=== PATIENT | female | born 1975 | race Caucasian/White ===

== ENCOUNTER → 2018-02-12 12:08 | Outpatient (CLI) | payer SELFPAY ==
[2018-02-12 14:24] LABS: Free T4 (Free Thyroxine) 1.33 ng/dl (0.76-1.46); Thyroid Stimulating Hormone 3.33 uIU/ml (0.358-3.740)
[2018-02-15 05:17] LABS: Calcium, Ionized 5.2 mg/dL (4.5-5.6)
== END ==
PROVIDERS: PCP Emergency Medicine; Visit Provider Otolaryngology
DX: E03.9 Hypothyroidism, unspecified (principal)
CPT/HCPCS: 36415; 82330; 84439; 84443

== ENCOUNTER → 2018-08-12 15:29 | Outpatient (CLI) | payer BC, SELFPAY ==
[2018-08-12 16:48] LABS: Free T4 (Free Thyroxine) 1.34 ng/dl (0.76-1.46)
[2018-08-15 17:28] LABS: Calcium, Ionized 5.4 mg/dL (4.5-5.6)
== END ==
PROVIDERS: Visit Provider Otolaryngology
DX: E03.9 Hypothyroidism, unspecified (principal)
CPT/HCPCS: 36415; 82330; 84439; 84443

== ENCOUNTER → 2018-12-14 16:00 | Outpatient (CLI) | payer BC, SELFPAY ==
--- NOTE | 2018-12-14 16:03 | MM_ITS ---
MM Dig screening mamm BI w/CAD CAD Screening COMPARISON: Digital mammograms with CAD 05/19/2016 INDICATION: There is a history of breast cancer and the patient grandmother and paternal aunt. There has been a previous biopsy left breast for benign disease. TECHNIQUE: Standard CC and MLO images were obtained. R2 CAD reviewed. FINDINGS: Moderate diffuse fibroglandular densities are seen throughout both breasts. A biopsy clip is seen upper central portion left breast. There is no suspicious lesion and there are no suspicious microcalcifications. There is a benign-appearing calcification left breast. IMPRESSION: Moderately dense parenchymal pattern with no suspicious lesion seen BI-RADS Category: 2 Benign Finding(s) RECOMMENDED FOLLOW-UP: 1YR - 1 YEAR FOLLOW-UP (A letter has been sent to the patient regarding results of the study.)
== END ==
PROVIDERS: PCP Emergency Medicine; Visit Provider Nurse Practitioner Obstetrics & Gynecology
DX: Z12.31 Encounter for screening mammogram for malignant neoplasm of breast (principal)
CPT/HCPCS: 77067

== ENCOUNTER → 2018-12-31 10:37 | Outpatient (CLI) | payer BC, SELFPAY ==
--- NOTE | 2018-12-31 10:39 | US_ITS ---
US transvaginal HISTORY: Heavy painful periods ITS.REASON: US T/V-= Bulky Uterus ORDERING PHYSICIAN: Cristhian Hutson MD PATIENT AGE: 43 years Comparison: None FINDINGS: The uterus is 8 x 6 x 5 cm. Combined and medial thickness is 5 mm. The posterior aspect of the uterine fundus there is a heterogeneous area of echogenicity measuring 4 x 3 cm consistent with a fibroid. Small fibroid is also suspected in the anterior aspect of the body of the uterus at 1.3 x 0.9 cm. Right ovary is 4 x 2 cm and the left ovary is 2.5 x 0.4 cm. There is a 2 cm cyst projecting off the right ovary. No adnexal mass or cul-de-sac fluid. IMPRESSION: 1. Uterine fibroids. Slightly bulky uterus. 2. 2 cm right ovarian cyst
== END ==
PROVIDERS: PCP Emergency Medicine; Visit Provider Nurse Practitioner Obstetrics & Gynecology
DX: N85.2 Hypertrophy of uterus (principal)
CPT/HCPCS: 76830

== ENCOUNTER → 2019-02-23 08:32 | Outpatient (CLI) | payer BC, SELFPAY ==
[2019-02-23 08:52] LABS: Basophils % 0.2 % (0.1-2.0); Eosinophils # 0.2 K/mm3 (0.0-0.4); Eosinophils % 1.7 % (0.1-12.0); Hematocrit 39.4 % (37.0-47.0); Hemoglobin 12.3 g/dL (12.2-16.2); Lymphocytes # 2.3 K/mm3 (0.7-4.5); Lymphocytes % 27.1 % (10-50); Mean Corpuscular HGB Conc 31.3 g/dL (31.8-35.4); Mean Corpuscular Hemoglobin 28.8 pg (27.0-31.2); Mean Corpuscular Volume 92.3 fl (81-99); Mean Platelet Volume 8.2 fl (7.4-10.4); Monocytes # 0.6 K/mm3 (0.1-1.0); Monocytes % 6.6 % (1.7-9.3); Neutrophils # 5.5 K/mm3 (1.8-7.8); Neutrophils % 64.3 % (37.0-80.0); Platelet Count 316 K/mm3 (142-424); Red Blood Count 4.27 M/mm3 (4.20-5.40); Red Cell Distribution Width 13.2 % (11.5-17.5); White Blood Count 8.6 K/mm3 (4.8-10.8)
[2019-02-23 09:56] LABS: Alanine Aminotransferase 45 U/L (12-78); Albumin Level 3.7 gm/dL (3.4-5.0); Albumin/Globulin Ratio 1.2 (1.1-1.8); Alkaline Phosphatase 76 U/L (46-116); Anion Gap 13.2 mEq/L (5-15); Aspartate Amino Transferase 26 U/L (15-37); Bilirubin,Total 0.5 mg/dL (0.2-1.0); Blood Urea Nitrogen 9 mg/dL (7-18); Calcium 8.9 mg/dL (8.5-10.1); Carbon Dioxide 26 mmol/L (21.0-32.0); Chloride 106 mmol/L (98-107); Chol/HDL Ratio 4.2 (1-3.5); Cholesterol 178 mg/dL (140-200); Creatinine,Serum 0.63 mg/dL (0.55-1.02); Estimated Glomerular Filt Rate 104 ml/min (>60); GFR (African American) 126 ML/MIN (>60); Glucose 93 mg/dL (74-106); HDL Cholesterol 42 mg/dL (29-89); LDL Cholesterol 111 mg/dL (0-130); Potassium 4.2 mmoL/L (3.5-5.1); Sodium 141 mmol/L (136-145); Total Protein,Serum 6.7 gm/dL (6.4-8.2); Triglycerides 127 mg/dL (30-200); VLDL Cholesterol 25 mg/dL (0-40)
== END ==
PROVIDERS: Visit Provider Nurse Practitioner Obstetrics & Gynecology
DX: Z00.00 Encounter for general adult medical examination without abnormal findings (principal)
CPT/HCPCS: 36415; 80053; 80061; 85025

== ENCOUNTER → 2019-03-22 16:03 | Outpatient (CLI) | payer BC, SELFPAY ==
--- NOTE | 2019-03-22 16:10 | XR_ITS ---
PROCEDURE: XR CHEST 2V CLINICAL HISTORY: cough Cough and congestion COMPARISON: CXR1 CHEST-PORTABLE from 07/07/2012 CXR CHEST(2 VIEWS-NOT PORTABLE) from 10/28/2012 CXR2V XR chest 2V from 04/12/2018 FINDINGS: The cardiomediastinal silhouette and pulmonary vascularity are within normal limits. The lungs are clear without infiltrates, suspicious nodules, or pleural effusions. There is a 4 cm pneumatocele involving the right middle lobe. No other significant anomalies are evident. No acute bony findings. IMPRESSION: 4 cm pneumatocele right middle lobe otherwise negative. No change with no acute finding Dictated by: Jay Quigley MD 03/22/2019 16:28 Electronically signed by Jay Quigley MD in [place] 03/22/2019 16:28
== END ==
PROVIDERS: PCP Nurse Practitioner Family; Visit Provider Nurse Practitioner Family
DX: R05 Cough (principal); R09.89 Other specified symptoms and signs involving the circulatory and respiratory systems; L02.91 Cutaneous abscess, unspecified
CPT/HCPCS: 71046; 87070; 87077; 87186; 87205

== ENCOUNTER → 2019-04-11 12:48 | Outpatient (CLI) | payer BC, SELFPAY ==
[2019-04-11 13:29] LABS: Thyroid Stimulating Hormone 3.93 uIU/ml (0.358-3.740)
== END ==
PROVIDERS: Visit Provider Otolaryngology
DX: E03.9 Hypothyroidism, unspecified (principal)
CPT/HCPCS: 36415; 84439; 84443

== ENCOUNTER → 2019-09-14 15:13 | Outpatient (CLI) | payer BC, SELFPAY ==
--- NOTE | 2019-09-14 15:13 | US_ITS ---
PROCEDURE: US TRANSVAGINAL CLINICAL INDICATION: dub Dysfunctional bleeding, prolonged heavy periods COMPARISON: TRANVAG US transvaginal from 12/31/2018 FINDINGS: UTERUS: 8cm x 4cmx 5cm with a combined endometrial thickness of 4.6mm There is an oval area decreased echogenicity in the anterior aspect of the body of the uterus at 1.3 x 0.9 x 1.6 cm. There is an additional hyperechoic area in the posterior aspect of the uterus at 3.8 x 3 cm. These are consistent with fibroids and are not significantly changed. LEFT OVARY: [id number] with a volume of 6.2ml. RIGHT OVARY: [id number] with a volume of 4.2ml. No cul-de-sac fluid evident. IMPRESSION: Overall no change in the uterine fibroids. Dictated by: Jay Quigley MD 09/14/2019 16:31 Electronically signed by Jay Quigley MD in [place] 09/14/2019 16:31
== END ==
PROVIDERS: PCP Nurse Practitioner Family; Visit Provider Nurse Practitioner Obstetrics & Gynecology
DX: N93.8 Other specified abnormal uterine and vaginal bleeding (principal)
CPT/HCPCS: 76830

== ENCOUNTER → 2019-12-09 13:08 | Outpatient (CLI) | payer BC, SELFPAY ==
[2019-12-10 14:52] LABS: Covid-19 Nasal PCR Sendout Lex Not Detected
== END ==
PROVIDERS: PCP Emergency Medicine; Visit Provider Emergency Medicine
DX: Z03.818 Encounter for observation for suspected exposure to other biological agents ruled out (principal)
CPT/HCPCS: U0004

== ENCOUNTER → 2020-03-20 15:54 | Outpatient (CLI) | payer BC, SELFPAY ==
[2020-03-20 17:20] LABS: Basophils % 0.2 % (0.1-2.0); Eosinophils # 0.1 K/mm3 (0.0-0.4); Eosinophils % 1.1 % (0.1-12.0); Hematocrit 44.4 % (37.0-47.0); Hemoglobin 14.5 g/dL (12.2-16.2); Lymphocytes % 20.9 % (10-50); Mean Corpuscular HGB Conc 32.7 g/dL (31.8-35.4); Mean Corpuscular Hemoglobin 29.9 pg (27.0-31.2); Mean Corpuscular Volume 91.3 fl (81-99); Mean Platelet Volume 8.8 fl (7.4-10.4); Monocytes # 0.5 K/mm3 (0.1-1.0); Monocytes % 5.7 % (1.7-9.3); Neutrophils # 6.8 K/mm3 (1.8-7.8); Neutrophils % 72.1 % (37.0-80.0); Platelet Count 303 K/mm3 (142-424); Red Blood Count 4.87 M/mm3 (4.20-5.40); Red Cell Distribution Width 12.9 % (11.5-17.5); White Blood Count 9.4 K/mm3 (4.8-10.8)
[2020-03-20 17:27] LABS: Alanine Aminotransferase 37 U/L (12-78); Albumin/Globulin Ratio 1.4 (1.1-1.8); Alkaline Phosphatase 101 U/L (38-126); Anion Gap 12.5 mEq/L (5-15); Aspartate Amino Transferase 33 U/L (14-36); Bilirubin,Total 0.6 mg/dl (0.2-1.3); Blood Urea Nitrogen 9 mg/dl (7-17); Calcium 9.2 mg/dl (8.4-10.2); Carbon Dioxide 25 mmol/L (22.0-30.0); Chloride 105 mmol/L (98-107); Chol/HDL Ratio 4.8 (1-3.5); Cholesterol 181 mg/dl (140-200); Estimated Glomerular Filt Rate 135 ml/min (>60); GFR (African American) 164 ML/MIN (>60); Globulin 2.9 g/dL (1.3-3.2); Glucose 99 mg/dl (74-100); HDL Cholesterol 38 mg/dl (40-60); Potassium 4.5 mmoL/L (3.5-5.1); Sodium 138 mmol/L (136-145); Total Protein,Serum 6.9 g/dl (6.3-8.2); Triglycerides 182 mg/dl (30-150); VLDL Cholesterol 36 mg/dL (0-40)
[2020-03-20 17:38] LABS: Direct LDL Cholesterol 122.34 mg/dL (100-129)
[2020-03-20 17:45] LABS: 25-OH Vitamin D, Total 38.3 ng/mL (30-100)
[2020-03-20 17:46] LABS: T4 (Thyroxine) 15.9 ug/dl (5.53-11.0)
[2020-03-20 18:00] LABS: Thyroid Stimulating Hormone 0.82 uIU/mL (0.465-4.68)
== END ==
PROVIDERS: Visit Provider Nurse Practitioner Family
DX: Z00.00 Encounter for general adult medical examination without abnormal findings (principal); E03.9 Hypothyroidism, unspecified; Z79.899 Other long term (current) drug therapy
CPT/HCPCS: 80053; 80061; 82306; 84436; 84443; 85025

== ENCOUNTER 2020-05-17 12:57 | Emergency (ER) | payer BC, SELFPAY ==
[2020-05-17 13:55] VITALS: BP 128/74; PULSE 55; RESP 20; TEMP 36.1; O2SAT 98; BMI 34.9
--- NOTE | 2020-05-17 14:23 | HMH.EDUTC ---
[facility] [place] Clinical Impression: Acute bronchitis Qualifiers: Bronchitis organism: unspecified organism Qualified Code(s): J20.9 - Acute bronchitis, unspecified Sinusitis Qualifiers: Sinusitis location: unspecified location Chronicity: unspecified Qualified Code(s): J32.9 - Chronic sinusitis, unspecified Disposition: Home, Self-Care Condition on Discharge: Good Instructions: Sinusitis, Sinus Headache, DI for Sinusitis, DI for COVID-19 (Suspected or Confirmed ), COVID-19 Viral Test, Preventing the Spread of Coronavirus Discharge Instructions, Acute Bronchitis Additional Instructions: ? Start antibiotic today. Be sure to complete entire prescription even if feeling better ? Monitor temp. Tylenol every 4 hours as needed and / or ibuprofen every 6 hours as needed ( As long as your primary care physician has told you that it ok to take both. For fever/aches/pains ER if no less than 101 despite Tylenol or Motrin ? Humidifier/vaporizer or hot steamy shower *Tessalon Perles will not cause drowsiness but use at bedtime to help stop cough so that you may get some rest. *Start steroid today. Helps with inflammation therefore, cough and wheezing. Follow directions on the package. Reviewed side effects. Patient reports taking them before. Follow up IMMEDIATELY for new or worsening of symptoms OR no noticeable improvement over the next 48-72 hours. 911 immediately for any life threatening symptoms such as chest pain or difficulty breathing Prescriptions: methylPREDNISolone [Medrol 4mg tab] 4 mg PO DIRECTED #21 tab Transmission Status: Pending to [facility] Benzonatate [Tessalon Perle 100mg Cap*] 100 mg PO TID PRN #15 cap PRN Reason: Cough Transmission Status: Pending to [facility] Azithromycin [Z-Yoan 250mg Tab] 250 mg PO DIRECTED #6 tab Transmission Status: Pending to [facility] Referrals: Terence Collins MD [Primary Care Provider] - Forms: Work/School Release Time of Disposition: 14:38 Medical Decision Making - Wilian Inquiry Pt receiving controlled substance: No Wilian was queried for this patient: No Vital Signs: 05/17/20 13:55 Temperature 97.0 F L Temperature Source Oral Pulse Rate [Left Brachial] 55 L Respiratory Rate 20 Blood Pressure [Left Arm] 128/74 Blood Pressure Mean [Left Arm] 92 Blood Pressure Source [Left Arm] Automatic Cuff Blood Pressure Position [Left Arm] Sitting 02 Sat by Pulse Oximetry 98 Oxygen Delivery Method Room Air - Lab Data Lab results reviewed: Yes: I reviewed the patient's lab results. Orders (Tests/Meds): ORDERS Category Date Time Status Covid-19 Nasal PCR Sendout P&C Stat Lab 05/17/20 14:13 Ordered Medical Decision Narrative: Patient states that she has taken azithromycin before without complications or reactions [facility] [place] - General Stated complaint: sore throat,ear pain Time Seen by Provider: 05/17/20 14:23 Mode of Arrival: Ambulatory Source of Information: Patient Limitations: No Limitations Description of Symptoms (Recalled from Triage Doc. 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
[2020-05-17 14:27] VITALS: BP 128/74; PULSE 55; RESP 20; TEMP 36.1; O2SAT 98
[2020-05-17 19:01] LABS: UTC Influenza A Antigen Negative (Negative); UTC Strep Screen (Rapid) Negative (Negative)
[2020-05-17 19:02] LABS: UTC Influenza B Antigen Negative (Negative)
[2020-05-18 10:57] LABS: Covid-19 Nasal PCR Sendout P&C NEGATIVE
== END 2020-05-17 14:30 | disposition home or self-care (01) ==
PROVIDERS: Emergency Provider Nurse Practitioner; PCP Emergency Medicine
DX: Z20.828 Contact with and (suspected) exposure to other viral communicable diseases (principal); J20.9 Acute bronchitis, unspecified; J32.9 Chronic sinusitis, unspecified; F17.210 Nicotine dependence, cigarettes, uncomplicated
CPT/HCPCS: 87804; 87880; 99202; U0004

== ENCOUNTER 2020-07-30 08:58 | Emergency (ER) | payer BC, SELFPAY ==
[2020-07-30 09:10] VITALS: BP 141/81; PULSE 68; RESP 19; TEMP 36.9; O2SAT 98; BMI 38.4
[2020-07-30 09:26] LABS: Apearance,Urine Clear (Clear); Bilirubin,Urine Negative (Negative); Blood, Urine 2+ (Negative); Color,Urine Yellow (Yellow); Glucose,Urine (UA) Negative (Negative); Ketones,Urine Negative (Negative); Protein,Urine Negative (Negative); UTC Leukocyte Esterase,Urine Negative (Negative); UTC Nitrate,Urine Negative (Negative); Urobilinogen,Urine 0.2 EU/dl (0.2)
--- NOTE | 2020-07-30 09:42 | HMH.EDUTC ---
[facility] Disposition Clinical Impression: Back pain Qualifiers: Back pain location: low back pain Chronicity: unspecified Back pain laterality: bilateral Sciatica presence: without sciatica Qualified Code(s): M54.5 - Low back pain Disposition: Home, Self-Care Condition on Discharge: Good Instructions: Low Back Pain, DI for Low Back Pain Additional Instructions: Make sure to follow up if no improvement or any worsening of symptoms Sometimes with Dependent edema can happen if you are on your feet too much and you can prop up your legs above the level of the heart to help Return if needed Straight to ER if any life threatening symptoms Make sure to take medication as prescribed by your Family Doctor to see if it helps with your pain and spasms Referrals: Terence Colilns MD [Primary Care Provider] - As needed Forms: Work/School Release Time of Disposition: 09:52 Medical Decision Making - Wilian Inquiry Pt receiving controlled substance: No Wilian was queried for this patient: No Vital Signs: 07/30/20 09:10 07/30/20 10:02 Temperature 98.4 F 98.4 F Temperature Source Oral Pulse Rate 68 Pulse Rate [Right Brachial] 68 Respiratory Rate 19 19 Blood Pressure 141/81 H Blood Pressure [Right Arm] 141/81 H Blood Pressure Mean [Right Arm] 101 Blood Pressure Source [Right Arm] Automatic Cuff Blood Pressure Position [Right Arm] Sitting 02 Sat by Pulse Oximetry 98 Oxygen Delivery Method Room Air - Lab Data Lab results reviewed: Yes: I reviewed the patient's lab results. Lab Results 07/30/20 09:16: Urine Color Yellow, Urine Appearance Clear, Urine pH 5.0, Ur Specific [place] 1.030, Urine Protein Negative, Urine Glucose (UA) Negative, Urine Ketones Negative, Urine Blood 2+, Urine Nitrate Negative, Urine Bilirubin Negative, Urine Urobilinogen 0.2, Ur Leukocyte Esterase Negative Medical Decision Narrative: Discussed with patient that if she had pulled a muscle and she was having spasms causing her pain she was prescribed Muscle relaxers by her PCP that would help with that pain in her back. She states that she is currently spotting getting ready to start her monthly period which would explain blood in urine. Discussed with patient that her urine in the UTC did not show any signs of infection Discussed transfer to the ED due to she was concerned with some mild swelling in her legs and history of kidney stones and current complaints would be better to be evaluated and treated in the ED and she declined transfer states that pain is not like what she had before with kidney stone this pain is across her lower back area and that she will follow up with her PCP or return if any worsening of symptoms and get the medication filled that was prescribed by her PCP to see if that helps with her pain/spasms [facility] HPI - General Stated complaint: right side pain Time Seen by Provider: 07/30/20 09:42 Mode of Arrival: Ambulatory Source of Information: Patient Limitations: No Limitations Description of Symptoms (Recalled from Triage Doc. by RN): PATIENT C/O FLANK PAIN, SWELLING, AND SOA X 1 WEEK HEENT Symptoms (Recalled from RN notes): No Resp Symptoms (Recalled from RN notes): Yes Skin Symptoms (Recalled from RN notes): No MS Symptoms (Recalled from RN notes): No Functional Status (Recalled from RN notes): WNL - History of Present Illness Provider Complaint: Patient state that she was seen at her PCP last week for lower back pain and it hasnt got any better but she hasnt taken any of the medication that he prescribed for her. States that she has continued to have lower back pain and was worried and wanted to get her urine checked to see if she may have an infection States that she has history of UTI States that when her back spasms and has pain it feels like it takes her breath So she come in today to get her urine checked to see if she had a UTI - Related Data Home Medications Medication Instructions Recorded Confirmed buprenorp
[2020-07-30 10:02] VITALS: BP 141/81; PULSE 68; RESP 19; TEMP 36.9; O2SAT 98
== END 2020-07-30 10:05 | disposition home or self-care (01) ==
PROVIDERS: Emergency Provider Nurse Practitioner; PCP Emergency Medicine
DX: M62.830 Muscle spasm of back (principal); M54.5 Low back pain; E03.9 Hypothyroidism, unspecified; F17.210 Nicotine dependence, cigarettes, uncomplicated; Z79.899 Other long term (current) drug therapy
CPT/HCPCS: 81003; 99202; G0463

== ENCOUNTER → 2020-08-10 09:01 | Outpatient (CLI) | payer BC, SELFPAY ==
--- NOTE | 2020-08-10 09:08 | MM_ITS ---
PROCEDURE: MM DIG SCREENING MAMM BI W/CAD Digital Breast Tomosynthesis Included CLINICAL INDICATION: screening breast cancer There is no personal or family history of breast cancer. There has been previous biopsy left breast for benign disease. COMPARISON: MG DMDXUL DIG MAMM-DX UNI-LT from 11/14/2015 MG DMDB DIG MAMM-DX ARANZA from 05/19/2016 MG DIG MAMM-SCREEN ARANZA from 12/14/2018 TECHNIQUE: Standard CC and MLO images and 3D Tomosynthesis was obtained. R2 CAD reviewed. FINDINGS: Moderate scattered fibroglandular densities are seen throughout both breast and the findings are bilateral and symmetrical. There is a biopsy clip upper central portion left breast. There is a stable tiny benign-appearing nodular density upper right breast likely a small intramammary node. There is no suspicious lesion and no suspicious microcalcifications. IMPRESSION: Moderate breast density with no suspicious lesions seen BI-RAD Category: 2 Benign Finding(s) FOLLOW-UP: 1YR 1 Year Follow-up (A letter has been sent to the patient regarding results of the study.) Dictated by: Dr. Jesse Peterson MD 08/18/2020 10:06 Dr. Jesse Peterson MD in [place] 08/18/2020 10:06
== END ==
PROVIDERS: PCP Emergency Medicine; Visit Provider Nurse Practitioner Family
DX: Z12.31 Encounter for screening mammogram for malignant neoplasm of breast (principal)
CPT/HCPCS: 77063; 77067

== ENCOUNTER → 2020-12-06 11:52 | Outpatient (CLI) | payer BC, SELFPAY ==
[2020-12-06 13:23] LABS: Free T4 (Free Thyroxine) 1.36 ng/dl (0.78-2.19)
[2020-12-06 13:41] LABS: Thyroid Stimulating Hormone 1.08 uIU/mL (0.465-4.68)
== END ==
PROVIDERS: Visit Provider Otolaryngology
DX: E03.9 Hypothyroidism, unspecified (principal)
CPT/HCPCS: 36415; 84439; 84443

== ENCOUNTER → 2020-12-25 16:53 | Outpatient (CLI) | payer BC, SELFPAY ==
--- NOTE | 2020-12-25 | XR_ITS ---
PROCEDURE: XR CHEST PORTABLE CLINICAL HISTORY: Cough and shortness of COMPARISON: CR CXR2V XR chest 2V from 04/12/2018 CR XR CHEST 2V from 03/22/2019 CR XR CHEST 2V from 08/12/2019 FINDINGS: The cardiomediastinal silhouette and pulmonary vascularity are within normal limits. The lungs are clear without infiltrates, suspicious nodules, or pleural effusions. No acute bony abnormalities. IMPRESSION: No acute findings. Dictated by: Jay Quigley MD 12/25/2020 18:01 Jay Quigley MD in [place] 12/25/2020 18:01
[2020-12-25 17:26] LABS: Adenovirus,PCR Not Detected (NotDetected); Bordetella Pertussis Not Detected (NotDetected); Chlamydophila Pneumoniae, PCR Not Detected (NotDetected); Coronavirus 19, PCR Not Detected (NotDetected); Coronavirus 229E Not Detected (NotDetected); Coronavirus NL63 Not Detected (NotDetected); Coronavirus OC43 Not Detected (NotDetected); Coronovirus HKU1,PCR Not Detected (NotDetected); Human Metapneumovirus Not Detected (NotDetected); Influenza A, PCR Not Detected (NotDetected); Influenza AH1, 2009 Not Detected (NotDetected); Influenza AH1, PCR Not Detected (NotDetected); Influenza AH3,PCR Not Detected (NotDetected); Influenza B, PCR Not Detected (NotDetected); Mycoplasma Pneumoniae, PCR Not Detected (NotDetected); Parainfluenza 1, PCR Not Detected (NotDetected); Parainfluenza 2, PCR Not Detected (NotDetected); Parainfluenza 3, PCR Not Detected (NotDetected); Parainfluenza 4, PCR Not Detected (NotDetected); Rhinovirus/Enterovirus Not Detected (NotDetected)
[2020-12-25 19:03] LABS: Respiratory Syncytial Virus Detected (NotDetected)
== END ==
PROVIDERS: PCP Nurse Practitioner Family; Visit Provider Nurse Practitioner Family
DX: Z20.822 Contact with and (suspected) exposure to COVID-19 (principal); R05 Cough; B97.4 Respiratory syncytial virus as the cause of diseases classified elsewhere
CPT/HCPCS: 71045; 87070; 87205; 87581; 87633; 87798

== ENCOUNTER → 2021-04-29 13:14 | Outpatient (CLI) | payer BC, SELFPAY ==
--- NOTE | 2021-05-01 11:20 | PC.NURSE ---
notified pt of positive COVID swab results at this time
== END ==
PROVIDERS: PCP Emergency Medicine; Visit Provider Nurse Practitioner
DX: U07.1 COVID-19 (principal)
CPT/HCPCS: C9803; U0003; U0005

== ENCOUNTER → 2021-08-16 14:58 | Outpatient (CLI) | payer BC, SELFPAY | PROVIDERS: Visit Provider Emergency Medicine | DX: Z20.822 Contact with and (suspected) exposure to COVID-19 (principal) | CPT/HCPCS: C9803; U0003; U0005 ==

== ENCOUNTER → 2022-01-31 14:50 | Outpatient (CLI) | payer BC, SELFPAY | PROVIDERS: PCP Nurse Practitioner Family; Visit Provider Nurse Practitioner Family | DX: N39.0 Urinary tract infection, site not specified (principal); B96.29 Other Escherichia coli [E. coli] as the cause of diseases classified elsewhere | CPT/HCPCS: 87086; 87088; 87186 ==

== ENCOUNTER → 2022-02-25 15:57 | Outpatient (CLI) | payer BC, SELFPAY | PROVIDERS: PCP Physician Assistant; Visit Provider Physician Assistant | DX: R39.9 Unspecified symptoms and signs involving the genitourinary system (principal) | CPT/HCPCS: 87086 ==

== ENCOUNTER → 2022-03-06 15:00 | Outpatient (CLI) | payer BC, SELFPAY ==
[2022-03-06 18:30] LABS: Chloride 103 mmol/L (98-107); Sodium 139 mmol/L (136-145)
[2022-03-06 18:31] LABS: Potassium 4.4 mmoL/L (3.5-5.1)
[2022-03-06 18:33] LABS: Alanine Aminotransferase 30 U/L (12-78); Albumin Level 4.2 g/dl (3.5-5.0); Albumin/Globulin Ratio 1.5 (1.1-1.8); Alkaline Phosphatase 120 U/L (38-126); Anion Gap 13.4 mEq/L (5-15); Aspartate Amino Transferase 33 U/L (14-36); Bilirubin,Total 0.2 mg/dl (0.2-1.3); Blood Urea Nitrogen 11 mg/dl (7-17); Calcium 8.7 mg/dl (8.4-10.2); Carbon Dioxide 27 mmol/L (22.0-30.0); Chol/HDL Ratio 5.4 (1-3.5); Cholesterol 223 mg/dl (140-200); Estimated Glomerular Filt Rate 109 ml/min (>60); GFR (African American) 131 ML/MIN (>60); Globulin 2.8 g/dL (1.3-3.2); Glucose 84 mg/dl (74-100); HDL Cholesterol 41 mg/dl (40-60); Triglycerides 220 mg/dl (30-150); VLDL Cholesterol 44 mg/dL (0-40)
[2022-03-06 18:35] LABS: Basophils # 0.1 K/mm3 (0-0.2); Basophils % 0.8 % (0.1-2.0); Eosinophils # 0.1 K/mm3 (0.0-0.4); Eosinophils % 1.4 % (0.1-12.0); Hemoglobin 14.1 g/dL (12.2-16.2); Lymphocytes # 2.5 K/mm3 (0.7-4.5); Lymphocytes % 26.9 % (10-50); Mean Corpuscular HGB Conc 32.8 g/dL (31.8-35.4); Mean Corpuscular Hemoglobin 29.6 pg (27.0-31.2); Mean Corpuscular Volume 90.3 fl (81-99); Mean Platelet Volume 8.9 fl (7.4-10.4); Monocytes # 0.5 K/mm3 (0.1-1.0); Monocytes % 5.1 % (1.7-9.3); Neutrophils # 6.2 K/mm3 (1.8-7.8); Neutrophils % 65.8 % (37.0-80.0); Platelet Count 353 K/mm3 (142-424); Red Blood Count 4.76 M/mm3 (4.20-5.40); Red Cell Distribution Width 13.2 % (11.5-17.5); White Blood Count 9.4 K/mm3 (4.8-10.8)
[2022-03-06 18:44] LABS: Direct LDL Cholesterol 127.28 mg/dL (100-129)
[2022-03-06 19:05] LABS: 25-OH Vitamin D, Total 23.3 ng/mL (30-100); Thyroid Stimulating Hormone 1.59 uIU/mL (0.465-4.68)
== END ==
PROVIDERS: PCP Student in an Organized Health Care Education/Training Program; Visit Provider Student in an Organized Health Care Education/Training Program
DX: N30.00 Acute cystitis without hematuria (principal); R51.9 Headache, unspecified; R53.83 Other fatigue; E55.9 Vitamin D deficiency, unspecified
CPT/HCPCS: 80053; 80061; 82306; 84443; 85025; 87086

== ENCOUNTER → 2022-03-31 11:07 | Outpatient (CLI) | payer BC, SELFPAY | PROVIDERS: PCP Emergency Medicine; Visit Provider Emergency Medicine | DX: Z20.822 Contact with and (suspected) exposure to COVID-19 (principal) | CPT/HCPCS: C9803; U0003; U0005 ==

== ENCOUNTER 2022-09-10 03:05 | Observation (INO) | payer OTHER, SELFPAY ==
[2022-09-10] VITALS (22 sets, daily range): BP systolic 105–152; BP diastolic 58–87; PULSE 59–98; RESP 15–18; TEMP 36.6–43; O2SAT 98–100; BMI 28.3; BMI 29.2
--- NOTE | 2022-09-10 03:37 | CT_ITS ---
PROCEDURE INFORMATION: Exam: CT Abdomen And Pelvis Without Contrast Exam date and time: 09/10/2022 3:37 AM Age: 47 years old Clinical indication: Abdominal pain; Prior surgery; Surgery type: Tubal, hysterectomy; Additional info: Abd pain, cramping TECHNIQUE: Imaging protocol: Computed tomography of the abdomen and pelvis without contrast. Radiation optimization: All CT scans at this facility use at least one of these dose optimization techniques: automated exposure control; mA and/or kV adjustment per patient size (includes targeted exams where dose is matched to clinical indication); or iterative reconstruction. REPORTING DATA: Count of CT and Cardiac NM exams in prior 12 months: This patient has received 0 known CTs and 0 known cardiac nuclear medicine studies in the 12 months prior to the current study. COMPARISON: CT ABDOMEN PELVIS WO CON 07/05/2019 10:14 AM FINDINGS: Lungs: A pneumatocele again noted in the right middle lobe, incompletely imaged. Lung bases are otherwise clear. Liver: Normal liver. Gallbladder and bile ducts: Normal gallbladder. No calcified stones. No ductal dilation. Pancreas: Normal pancreas. No ductal dilation. Spleen: Tiny calcified granulomas in the spleen. Otherwise unremarkable. Adrenal glands: Adrenal glands are normal. Kidneys and ureters: A few tiny, 1-2 mm bilateral nonobstructive renal calculi. No hydronephrosis or obstructive calculus. Stomach and bowel: Large and small bowel loops appear unremarkable. No obvious gastric abnormality. Appendix: An 8 mm diameter appendix with mild periappendiceal inflammatory changes, consistent with acute appendicitis. Intraperitoneal space: Trace free fluid in the pelvis. No free air. No abscess. Vasculature: Unremarkable. No abdominal aortic aneurysm. Lymph nodes: No adenopathy. Urinary bladder: Urinary bladder is partially decompressed but otherwise unremarkable. Reproductive: Status post interval hysterectomy. Small simple cyst or dominant follicle in the right ovary. Unremarkable left ovary. Bones/joints: No acute osseous abnormality. Soft tissues: Unremarkable. IMPRESSION: 1. An 8 mm diameter appendix with mild periappendiceal inflammatory changes, consistent with acute appendicitis. Appendix previously only measured 3 mm. 2. Trace free fluid in the pelvis. 3. A few tiny, 1-2 mm bilateral nonobstructive renal calculi. 4. THIS REPORT CONTAINS FINDINGS THAT MAY BE CRITICAL TO PATIENT CARE. The findings were verbally communicated via telephone conference with SAAD Yoder at 4:31 AM EDT on 09/10/2022. The findings were acknowledged and understood.
[2022-09-10 03:38] LABS: Basophils % 0.2 % (0.1-2.0); Eosinophils # 0.1 K/mm3 (0.0-0.4); Eosinophils % 0.8 % (0.1-12.0); Hematocrit 49.3 % (37.0-47.0); Hemoglobin 16.8 g/dL (12.2-16.2); Lymphocytes # 2.3 K/mm3 (0.7-4.5); Lymphocytes % 18.9 % (10-50); Mean Corpuscular Hemoglobin 29.8 pg (27.0-31.2); Mean Corpuscular Volume 87.5 fl (81-99); Mean Platelet Volume 8.5 fl (7.4-10.4); Monocytes # 0.4 K/mm3 (0.1-1.0); Monocytes % 3.2 % (1.7-9.3); Neutrophils # 9.3 K/mm3 (1.8-7.8); Neutrophils % 76.9 % (37.0-80.0); Platelet Count 310 K/mm3 (142-424); Red Blood Count 5.63 M/mm3 (4.20-5.40); Red Cell Distribution Width 12.7 % (11.5-17.5)
--- NOTE | 2022-09-10 03:38 | PC.NURSE ---
ATTEMPTED TO EXPLAIN TO PATIENT THAT CT SCAN WITH CONTRAST PROTOCOL FOR THOSE WITH ALLERGIES TO IODINE INVOLVE BENADRYL AND SOLUMEDROL PRE-TREATMENT. PT IS ADAMANT SHE WILL NOT ALLOW IV CONTRAST OR PRE-TREATMENT. AWARE. 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
[2022-09-10 03:45] LABS: Alanine Aminotransferase 38 U/L (12-78); Albumin Level 4.9 g/dl (3.5-5.0); Albumin/Globulin Ratio 1.5 (1.1-1.8); Alkaline Phosphatase 86 U/L (38-126); Amylase 98 U/L (30-110); Aspartate Amino Transferase 37 U/L (14-36); Bilirubin,Total 0.8 mg/dl (0.2-1.3); Blood Urea Nitrogen 11 mg/dl (7-17); Calcium 9.7 mg/dl (8.4-10.2); Carbon Dioxide 21 mmol/L (22.0-30.0); Chloride 105 mmol/L (98-107); Creatinine Clearance Estimated 144 mL/min (50-200); Estimated Glomerular Filt Rate 108 ml/min (>60); GFR (African American) 131 ML/MIN (>60); Globulin 3.3 g/dL (1.3-3.2); Glucose 102 mg/dl (74-100); Lipase 322 U/L (23-300); Sodium 134 mmol/L (136-145); Total Protein,Serum 8.2 g/dl (6.3-8.2)
--- NOTE | 2022-09-10 03:54 | HMH.EDABDPAI ---
Discharge Plan Disposition Patient Disposition: Admitted As Inpatient Chief Complaint: Abdominal Pain Clinical Impressions Clinical Impression: Acute appendicitis Discharge ED Provider: Dennis (ED)Terence Abdominal Pain HPI General Chief Complaint: Abdominal Pain Stated Complaint: severe abdominal pain Time Seen by Provider: 09/10/22 03:30 Mode of Arrival: Family Vehicle Source of Information: Patient and Medical Record Limitations: No Limitations Description of Symptoms (Recalled from ER Triage Doc. by RN): 3-4 HOURS OF ABD PAIN AND CRAMPING THAT SHE STATES IS AFFECTING HER WHOLE STOMACH . STATES SHE ATE TACO [facility]SA LAST NIGHT BUT DOESN'T KNOW OF ANYTHING ELSE THAT COULD'VE CAUSED THE DISCOMFORT. HISTORY OF KIDNEY STONES, BUT DENIES DYSURIA OR HEMATURIA. PSH: TUBAL, FOLLOWED BY HYSTERECTOMY. AFEBRILE, BUT HAS COLD CHILLS. DNEIES N/V/D SO FAR. History of Present Illness HPI narrative: progressive abd pain over the last 24 hrs with dec appetite - started periumbilical and moved to rt lower abd MD complaint: abdominal pain Onset (ago): hour(s) Consistency: constant Location: RLQ Severity: moderate Quality: sharp Associated symptoms: denies other symptoms Related Data Home Medications Medication Instructions Recorded Confirmed buprenorphine 8 mg-naloxone 2 mg 10 mg buccal Q24H Pain 07/24/17 07/10/22 sublingual film (Suboxone) Previous Rx's Medication Instructions Recorded fluticasone propionate 50 2 spray intranasal DAILY #16 grams 04/28/22 mcg/actuation nasal spray,suspension (Flonase Allergy Relief) levothyroxine 125 mcg tablet 125 mcg PO .COMPLEX #90 tabs 04/28/22 triamcinolone acetonide 55 mcg 2 spray intranasal DAILY #16.9 mL 04/28/22 nasal spray aerosol (Nasacort) escitalopram oxalate 10 mg tablet 10 mg PO DAILY #30 tabs 07/04/22 (Lexapro) hydroxyzine pamoate 25 mg capsule 25 mg PO TID PRN itching #60 caps 07/10/22 (Vistaril) ropinirole 1 mg tablet 1 mg PO DAILY #30 tabs 07/10/22 Allergies Allergy/AdvReac Type Severity Reaction Status Date / Time iodine Allergy Intermediate I-RASH Verified 07/10/22 09:58 shellfish derived Allergy Mild UNK Verified 07/10/22 09:58 [From SHELLFISH (FOOD/DRUG)] [facility] Disclaimer: The information contained in this section may have been updated after the patient was seen, as this information can be updated by other users. Medical History (Updated 09/10/22 @ 05:22 by Terence Collins (ED)MD) Acute bronchitis Atypical chest pain Back pain Cervical strain, acute Chest pain Degenerative disc disease Dental caries Deviated nasal septum Hematuria Hypothyroid Nephrolithiasis Sinusitis Spinal stenosis in cervical region Strain of fascia of pelvis UTI (urinary tract infection) Surgical History H/O total hysterectomy Social History Smoking Status: Current every day smoker tobacco type: cigarettes packs per day: 1 second hand exposure: Yes alcohol intake: never substance use type: former substance user current occupational status: other Travel in the last 8 weeks: None ROS Obtained: Yes All systems reviewed & no additional complaints except as documented Physical Exam General General appearance: alert Head Head exam: normocephalic Eye Eye exam: Present PERRL and EOMI ENT ENT exam: Present mucous membranes moist Neck Neck exam: Present trachea midline Respiratory Respiratory exam: Present normal lung sounds bilaterally; Absent respiratory distress Cardiovascular Cardiovascular exam: Present regular rate Abdominal Exam Abdominal exam: Present soft and tenderness; Absent guarding or rigidity Abdominal tenderness: Present RLQ and moderate Extremities Exam Extremities exam: Present full ROM Back Exam Back exam: Absent CVA tenderness (R) Neurological Exam Neurological exam: Present alert, oriented X3 and
--- NOTE | 2022-09-10 04:39 | PC.NURSE ---
giancarlo on phone with dr avina
[2022-09-10 04:44] LABS: Coronavirus 19, PCR Not Detected (NotDetected); Influenza A, PCR Not Detected (NotDetected); Influenza B, PCR Not Detected (NotDetected)
--- NOTE | 2022-09-10 04:48 | PC.NURSE ---
Patient admitted observation to [address] White with acute appendicitis.
--- NOTE | 2022-09-10 05:40 | PC.NURSE ---
PT ARRIVED TO FLOOR AT THIS TIME
--- NOTE | 2022-09-10 06:22 | EXP.GEN.HP ---
HPI HPI HPI: Patient is a pleasant 47-year-old female with history of anxiety and depression. She had been on Suboxone but has stopped taking this several days. She describes some occasional burning pain for some time. However she states that yesterday on 09/09/2022 she had developed some diffuse abdominal pain more significant in the mid periumbilical location. This persisted from about 5 PM until about 3 AM this morning on 09/10/2022 when it became much more severe with some localization to the lower abdomen in the right lower quadrant. She therefore presented to the emergency department where she was seen and evaluated. She was found to have a mild leukocytosis of 12,000. She underwent CT scan which revealed findings of 8 mm diameter appendix with periappendiceal inflammatory changes consistent with uncomplicated acute appendicitis. Surgery was contacted. Arrangements were made for admission and inpatient management for acute appendicitis. [facility] Disclaimer: The information contained in this section may have been updated after the patient was seen, as this information can be updated by other users. Medical History (Updated 09/10/22 @ 05:22 by Terence Collins MD (ED)) Acute bronchitis Atypical chest pain Back pain Cervical strain, acute Chest pain Degenerative disc disease Dental caries Deviated nasal septum Hematuria Hypothyroid Nephrolithiasis Sinusitis Spinal stenosis in cervical region Strain of fascia of pelvis UTI (urinary tract infection) Surgical History H/O total hysterectomy Social History (Updated 09/10/22 @ 06:03 by Yakov Eid RN) Smoking Status: Current every day smoker tobacco type: cigarettes packs per day: 1 second hand exposure: Yes alcohol intake: never substance use type: former substance user current occupational status: other Travel in the last 8 weeks: None Meds Home Medications and Allergies Home Medications Medication Instructions Recorded Confirmed Type buprenorphine 8 mg-naloxone 2 mg 10 mg buccal Q24H Pain 07/24/17 07/10/22 History sublingual film (Suboxone) fluticasone propionate 50 2 spray intranasal DAILY #16 grams 04/28/22 07/10/22 Rx mcg/actuation nasal spray,suspension (Flonase Allergy Relief) levothyroxine 125 mcg tablet 125 mcg PO .COMPLEX #90 tabs 04/28/22 07/10/22 Rx triamcinolone acetonide 55 mcg 2 spray intranasal DAILY #16.9 mL 04/28/22 07/10/22 Rx nasal spray aerosol (Nasacort) escitalopram oxalate 10 mg tablet 10 mg PO DAILY #30 tabs 07/04/22 07/10/22 Rx (Lexapro) hydroxyzine pamoate 25 mg capsule 25 mg PO TID PRN itching #60 caps 07/10/22 07/10/22 Rx (Vistaril) ropinirole 1 mg tablet 1 mg PO DAILY #30 tabs 07/10/22 07/10/22 Rx New Prescriptions to Start Prescriptions: Allergies Allergy/AdvReac Type Severity Reaction Status Date / Time iodine Allergy Intermediate I-RASH Verified 07/10/22 09:58 shellfish derived Allergy Mild UNK Verified 07/10/22 09:58 [From SHELLFISH (FOOD/DRUG)] Exam Data for Last 24 hours Vital signs and Labs for Last 24 Hours: Temp Pulse Resp BP Pulse Ox 98.5 F 65 18 143/84 H 99 09/10/22 06:01 09/10/22 06:01 09/10/22 06:01 09/10/22 06:01 09/10/22 06:17 Laboratory Results - last 24 hr 09/10/22 03:23: WBC 12.0 H, RBC 5.63 H, Hgb 16.8 H, Hct 49.3 H, MCV 87.5, MCH 29.8, MCHC 34.0, RDW 12.7, Plt Count 310, MPV 8.5, Neut % (Auto) 76.9, Lymph % (Auto) 18.9, [place] % (Auto) 3.2, Eos % (Auto) 0.8, Baso % (Auto) 0.2, Neut # (Auto) 9.3 H, Lymph # (Auto) 2.3, [place] # (Auto) 0.4, Eos # (Auto) 0.1, Baso # (Auto) 0.0 09/10/22 03:23: Sodium 134 L, Potassium 4.0, Chloride 105, Carbon Dioxide 21 L, Anion Gap 12.0, BUN 11, Creatinine 0.60, Estimated Creat Clear 144, Estimated GFR 108, Est GFR ( Amer) 131, Glucose 102 H, Calcium 9.7, Total Bilirubin 0.8, AST 37 H, ALT 38, Alkaline Phosphatase 86, Total Protein 8.2,
--- NOTE | 2022-09-10 07:10 | EXP.ANES.CKL ---
[facility] Disclaimer: The information contained in this section may have been updated after the patient was seen, as this information can be updated by other users. Medical History (Updated 09/10/22 @ 05:22 by Terence Collins MD (ED)) Acute bronchitis Atypical chest pain Back pain Cervical strain, acute Chest pain Degenerative disc disease Dental caries Deviated nasal septum Hematuria Hypothyroid Nephrolithiasis Sinusitis Spinal stenosis in cervical region Strain of fascia of pelvis UTI (urinary tract infection) Surgical History H/O total hysterectomy Social History (Updated 09/10/22 @ 06:03 by Yakov Eid RN) Smoking Status: Current every day smoker tobacco type: cigarettes packs per day: 1 second hand exposure: Yes alcohol intake: never substance use type: former substance user current occupational status: other Travel in the last 8 weeks: None [facility] Anesthesia Checklist Patient Identification Patient Identification: Arm Band Structural Data Admitted From: Inpatient Planned Operative Procedure/s: Laparoscopic Appendectomy Consent for Planned Operative Procedure(s) Verified: Yes Verified Documents: Surgical Consent and History and Physical NPO Status Verified Time NPO: 00:00 Additional verifications Anesthesia Reactions: No Airway Assessment C-Spine Mobility Assessed: Yes TMJ Mobility Assessed: Yes Dentition: Good Dentition Neurological Assessment Level of Consciousness: Awake and Alert Anesthesia Plan Anesthesia Risk discussed: Yes Anesthesia Plan: Verified ASA Class: II Anesthesia Type: General
--- NOTE | 2022-09-10 07:51 | P.OP_ITS ---
Date of procedure: 09/10/22 Pre-op Diagnosis:: Acute appendicitis Post-op Diagnosis:: Same Procedure performed:: Laparoscopic appendectomy Surgeon:: Bryant White MD APPRENTICE INSTRUMENT TECHNICIAN:: Alex Richardson Anesthesia: MERLE Estimated blood loss (mL): 20 Clinical Note:: Patient is a pleasant 47-year-old female with history of anxiety and depression.? She had been on Suboxone but has stopped taking this several days.? She describes some occasional burning pain for some time.? However she states that yesterday on 09/09/2022 she had developed some diffuse abdominal pain more significant in the mid periumbilical location.? This persisted from about 5 PM until about 3 AM this morning on 09/10/2022 when it became much more severe with some localization to the lower abdomen in the right lower quadrant.? She therefore presented to the emergency department where she was seen and evaluat ed.? She was found to have a mild leukocytosis of 12,000.? She underwent CT scan which revealed findings of 8 mm diameter appendix with periappendiceal inflammatory changes consistent with uncomplicated acute appendicitis.? Surgery was contacted.? Arrangements were made for admission and inpatient management for acute appendicitis. Operative findings:: She had acute suppurative nonperforated appendicitis. Base of the appendix and terminal ileum were in close proximity. Operative note:: Patient was taken to the operating room. She was given preoperative intravenous antibiotics. In the operating room she was placed in a supine position. General anesthesia was induced via endotracheal tube. Abdomen was prepped and draped in the standard surgical fashion after placement of Kim catheter. Infraumbilical skin incision was made in the previous laparoscopy scar. While performing abdominal wall lift insufflation needle was inserted. CO2 pneumoperitoneum was achieved to 15 mmHg. 12 mm optical trocar was inserted at the umbilicus. Intraperitoneal contents were visualized. There was some cloudy fluid in the pelvis. 5 mm trocar was inserted in the left lower abdomen. Fluid was suctioned free from the pelvis. 5 mm trocar was inserted in the right upper abdomen. 10 mm laparoscope was replaced with 5 mm angled laparoscope. Appendix was identified. There was some acute exudative adhesions to the pelvic sidewall. It was bluntly dissected free and retracted anteriorly. It was inflamed, indurated and somewhat suppurative. The appendiceal stump and terminal ileum were rather close proximity. This required some blunt dissection of the mesoappendix. The mesoappendix was carefully divided with BJORN ultrasonic harmonic gabriele. The appendiceal artery was clearly identified and isolated. It was coagulated with BJORN ultrasonic harmonic gabriele and divided. Dissection was carried down to the appendiceal base. The appendix was divided at its base with an endoscopic FRANK linear cutting stapling device. The appendix was placed within an Endo Catch retrieval device and removed from the peritoneal cavity via the umbilical trocar site which required some minimal stretching of the fascial incision for delivery of the thickened appendix. Limited irrigation was carried out of the pelvis and pericecal location. Appendiceal stump/staple line was inspected for hemostasis and integrity which was assured. Trocars were then removed as CO2 pneumoperitoneum was evacuated. Fascia at the umbilicus was closed with a couple 0 Vicryl sutures. Local anesthetic was infiltrated. Skin incisions were closed with 4-0 Monocryl in a subcuticular fashion. Dermabond and dressings were applied. Condition: stable Disposition: PACU Complications:: None immediately apparent
--- NOTE | 2022-09-10 08:02 | EXP.ANES.I ---
[facility] Anesthesia Record Part I Anesthesia Record I Intake, IV Amount: 800 Estimated blood loss (mL): 10 Urine output (mL): 200 Blood Pressure: 142/83 SaO2: 98 Pulse Rate: 70 Respiratory Rate: 16 Temperature: 97.9 F Patient is:: Drowsy and Stable Stable to PACU at:: 08:00
--- NOTE | 2022-09-10 08:55 | HMH.PHAINT1 ---
Pharmacy Intervention Comments: Reconciled patient's home medications using pharmacy fill history and patient interview.
--- NOTE | 2022-09-10 10:47 | PC.NURSE ---
0821- received report from Carlos Manuel RN, pt stable, no pain, vss. 08:45 - pt arrived to floor. see assessment.
--- NOTE | 2022-09-10 13:47 | PC.NURSE ---
late entry: [id number] White's office that patient would like to be discharged today.
[2022-09-10 15:14] LABS: Microscopic,Cath URINE MICROSCOPIC (MICROSCOPIC)
--- NOTE | 2022-09-10 15:16 | HMH.PHAINT1 ---
Pharmacy Intervention Comments: Counseled patient and family to CONTINUE taking levothyroxine. Patient and family expressed understanding.
[2022-09-10 16:12] LABS: Appearance,Urine/Cath CLEAR (Clear); Bilirubin,Cath Negative (Negative); Blood, Urine/Cath 1+ (Negative); Color,Urine/Cath YELLOW (Yellow); Glucose,Urine/Cath (UA) Negative (Negative); Ketones,Urine/Cath 1+ (Negative); Leukocyte Esterase,Cath Negative (Negative); Nitrate,Cath Negative (Negative); Protein,Urine/Cath Negative (Negative); Specific Gravity, Urine/Cath >= 1.030 (1.005-1.030); Urobilinogen,Cath 0.2 EU/dl (0.2)
[2022-09-10 17:32] LABS: Bacteria,Urine/Cath 1+ /lpf; RBC,Urine/Cath Occasional # /hpf (0-3); Squamous Epithelial Ur./Cath Occasional #/hpf (0-5)
[2022-09-11 11:18] VITALS: BP 139/75; PULSE 59; TEMP 36.6
--- NOTE | 2022-09-11 11:18 | P.PNANES_ITS ---
[facility] Anesthesia Record Part II Anesthesia Record Part II Discharge Time: 08:30 Destination: Medical Surgical Department PACU nurse assessment reviewed?: Yes Patient Condition:: Good Anesthesia Complications:: None Swallowing reflex intact?: Yes Cyanosis?: No Blood Pressure: 139/75 Pulse Rate: 59 Temperature: 97.9 F Mental Status: Alert & Oriented Pain level:: 0 Nausea and/or vomitting:: None Intake, IV Amount: 0
--- NOTE | 2022-09-11 14:57 | CARE MANAGER ---
Spoke with patient for post-discharge phone interview, no issues noted.
== END 2022-09-10 16:00 | disposition home or self-care (01) ==
LOC: ER 03:27 → 2ND 05:22
PROVIDERS: Admitting Provider Surgery; Emergency Provider Emergency Medicine; PCP Emergency Medicine; Visit Provider Surgery
PROC: (CPT 44950; principal; 2022-09-10 07:00)
DX: K35.890 Other acute appendicitis without perforation or gangrene (principal); F17.210 Nicotine dependence, cigarettes, uncomplicated; Z20.822 Contact with and (suspected) exposure to COVID-19
CPT/HCPCS: 44970; 74176; 80053; 81001; 82150; 83690; 85025; 88304; 99285; C9803; G0378; J2405; J2710; U0003; U0005

== ENCOUNTER 2023-06-12 15:16 | Outpatient (CLI) | payer OTHER, SELFPAY ==
--- NOTE | 2023-06-12 15:18 | US_ITS ---
FINAL REPORT TECHNIQUE: Real-time grayscale and color ultrasound of the thyroid was performed. CLINICAL HISTORY: Hypothyroidism COMPARISON: None FINDINGS: Right lobe of the thyroid is absent. The left lobe measures 3.2 cm and is unremarkable. The isthmus measures 0.4 cm. No suspicious mass or nodule identified. IMPRESSION: Unremarkable left lobe of the thyroid. Right lobe absent Reviewed, Interpreted and Dictated by Bryant Forbes III, MD Transcribed by Brooke Conde Authenticated and [facility]
[2023-06-12 17:17] LABS: Free T4 (Free Thyroxine) 1.13 ng/dl (0.78-2.19)
[2023-06-12 17:31] LABS: Thyroid Stimulating Hormone 1.41 uIU/mL (0.465-4.68)
== END 2023-06-12 23:59 ==
PROVIDERS: PCP Nurse Practitioner Family; Visit Provider Nurse Practitioner
DX: E07.81 Sick-euthyroid syndrome (principal); Z90.89 Acquired absence of other organs
CPT/HCPCS: 36415; 76536; 84439; 84443

== ENCOUNTER 2023-07-23 17:09 | Day surgery (SDC) | payer OTHER, SELFPAY ==
--- NOTE | 2023-07-23 17:15 | XR_ITS ---
PROCEDURE INFORMATION: Exam: XR Soft Tissue Neck Exam date and time: 07/23/2023 5:04 PM Age: 48 years old Clinical indication: Other: R/O fb; Additional info: Swallowed bottle cap TECHNIQUE: Imaging protocol: Radiologic exam of the soft tissues of the neck. COMPARISON: [facility] CT cervical spine wo con 08/18/2018 5:33 PM FINDINGS: Airway: No radiopaque foreign bodies are identified. No abnormal narrowing. Evaluation of the airway is mildly limited due to patient body habitus. Soft tissues: Normal. Normal epiglottis. Bones/joints: Unremarkable. IMPRESSION: 1. No acute findings. 2. No radiopaque foreign bodies.
--- NOTE | 2023-07-23 17:16 | PC.NURSE ---
paged dr avina for ed
--- NOTE | 2023-07-23 17:20 | PC.NURSE ---
pt placed in gown
[2023-07-23 17:22] VITALS: BP 188/98; PULSE 99; RESP 22; TEMP 36.8; O2SAT 99; BMI 34.9
--- NOTE | 2023-07-23 17:23 | P.HP_ITS ---
HPI HPI HPI: Patient is a 48-year-old female who presents to the emergency department with symptoms consistent with esophageal foreign body after she had reportedly accidentally swallowed a bottle cap. She states that she was driving and opening the bottle with her mouth/teeth and accidentally swallowed a bottle cap Approximately 4:30 PM. She has been unable to swallow secretions. I have previously seen the patient for acute appendicitis. She complains of discomfort in her throat. Interestingly the patient asks if it is possible to do this without anesthesia. [facility] Disclaimer: The information contained in this section may have been updated after the patient was seen, as this information can be updated by other users. Medical History Acute appendicitis Acute bronchitis Atypical chest pain Back pain Cervical strain, acute Chest pain Degenerative disc disease Dental caries Deviated nasal septum Hematuria Hypothyroid Currently on Synthroid 0.125 mg Nephrolithiasis Sinusitis Spinal stenosis in cervical region Strain of fascia of pelvis UTI (urinary tract infection) Surgical History H/O total hysterectomy History of appendectomy History of left breast biopsy History of thyroidectomy Social History Smoking Status: Current every day smoker tobacco type: cigarettes packs per day: 1 second hand exposure: Yes alcohol intake: never substance use type: former substance user current occupational status: other Travel in the last 8 weeks: None Meds Home Medications and Allergies Home Medications Medication Instructions Recorded Confirmed Type buprenorphine 8 mg-naloxone 2 mg 1 film sublingual DAILY 09/17/22 06/09/23 History sublingual film levothyroxine 125 mcg tablet 125 mcg PO DAILY Thyroid #30 tabs 06/09/23 06/09/23 Rx New Prescriptions to Start Prescriptions: Allergies Allergy/AdvReac Type Severity Reaction Status Date / Time iodine Allergy Intermediate I-RASH Verified 07/23/23 17:30 shellfish derived Allergy Mild UNK Verified 07/23/23 17:30 [From SHELLFISH (FOOD/DRUG)] Exam Constitutional Constitutional: mild distress *Routine HEENT Exam Head: Present normocephalic Eye: Present EOMI and PERRL ENT: Present mucous membranes moist *Routine Neck Exam Neck: Present supple; Absent lymphadenopathy *Routine Respiratory Exam Respiratory: Present CTA bilaterally *Routine Cardiovascular Exam Cardiovascular: Present RRR *Routine Abdominal Exam Abdominal: Present soft and normoactive bowel sounds; Absent tenderness *Routine Rectal Exam Rectal:: deferred *Routine Genitalia Exam Genitalia:: deferred *Routine Extremities Exam Extremities: Absent cyanosis, clubbing or edema *Routine Skin Exam Skin: Present warm; Absent rash *Routine Neurological Exam Neurological: Present alert and oriented X3 Assessment and Plan *Assessment and plan (1) Acute esophageal obstruction: Status: Acute Category: Medical Code(s): K22.2 - Esophageal obstruction Plan Plan to proceed with urgent upper endoscopy.
--- NOTE | 2023-07-23 17:23 | HMH.EDGENADL ---
Discharge Plan Disposition Patient Disposition: Admitted Condition: Good Chief Complaint: Skin/Abscess/Foreign Body Prescriptions Prescriptions: No Action levothyroxine 125 mcg tablet 125 mcg PO DAILY Qty: 30 11RF buprenorphine-naloxone 8-2 mg film 1 film sublingual DAILY Referrals Follow up/Referrals: Provider,Referral, [Primary Care Provider] - See instructions Clinical Impressions Clinical Impression: Esophageal foreign body Discharge ED Provider: Marsha Mcrae General Adult HPI General Chief complaint: Skin/Abscess/Foreign Body Stated complaint: swallowed a waterbottle cap Time Seen by Provider: 07/23/23 17:20 History of Present Illness HPI narrative: Patient is a 48-year-old female with past medical history anxiety, depression, restless leg syndrome presenting with acute esophageal foreign body. She states that she was taking off the cap of her water with her teeth and breathing when she was taking it off and accidentally inhaled the Or swallowed it. She was seen by EMS who stated she was hemodynamically stable and managing her airway but continually vomiting into emesis bag. She denies any other complaints except she feels the need to vomit continuously as she still feels like it is in her throat. Related Data Home Medications Medication Instructions Recorded Confirmed buprenorphine 8 mg-naloxone 2 mg 1 film sublingual DAILY 09/17/22 06/09/23 sublingual film Previous Rx's Medication Instructions Recorded levothyroxine 125 mcg tablet 125 mcg PO DAILY Thyroid #30 tabs 06/09/23 Allergies Allergy/AdvReac Type Severity Reaction Status Date / Time iodine Allergy Intermediate I-RASH Verified 07/23/23 17:30 shellfish derived Allergy Mild UNK Verified 07/23/23 17:30 [From SHELLFISH (FOOD/DRUG)] [facility] Disclaimer: The information contained in this section may have been updated after the patient was seen, as this information can be updated by other users. Medical History Acute appendicitis Acute bronchitis Atypical chest pain Back pain Cervical strain, acute Chest pain Degenerative disc disease Dental caries Deviated nasal septum Hematuria Hypothyroid Currently on Synthroid 0.125 mg Nephrolithiasis Sinusitis Spinal stenosis in cervical region Strain of fascia of pelvis UTI (urinary tract infection) Surgical History H/O total hysterectomy History of appendectomy History of left breast biopsy History of thyroidectomy Social History Smoking Status: Current every day smoker tobacco type: cigarettes packs per day: 1 second hand exposure: Yes alcohol intake: never substance use type: former substance user current occupational status: other Travel in the last 8 weeks: None ROS Obtained: Yes All systems reviewed & no additional complaints except as documented Physical Exam General General appearance: alert Comment: holding emesis bag and frequently vomiting though maintaining airway and able to talk Head Head exam: atraumatic and normocephalic Eye Eye exam: Present PERRL and EOMI ENT ENT exam: Present mucous membranes moist Neck Neck exam: Present normal inspection Chest Chest inspection: Present normal inspection and symmetric chest wall rise Respiratory Respiratory exam: Present normal lung sounds bilaterally and other (no stridor); Absent respiratory distress Cardiovascular Cardiovascular exam: Present regular rate and normal rhythm Abdominal Exam Abdominal exam: Present soft; Absent tenderness Neurological Exam Neurological exam: Present alert and oriented X3 Skin Skin exam: Present warm and dry Medical Decision Making Medical Records Medical records reviewed: Yes I reviewed the patient's medical records. Wilian Inquiry Pt receiving controlled substance: No Vital Signs: 07/23/23 17:22 Temperature 98.2 F Temperature Source Oral Pulse Rate [Left] 99 H Respiratory Rate 22 Blood Pressure [Right Arm] 188/98 H Blood Pressure Mean [Right Arm] 128 Blood Pressure Source [Right Arm] Automatic Cuff Blood Pressure Position [Right Arm] Sitting 02 Sat by Pulse Oximetry 99 Lab Data Lab results reviewed: Yes I reviewed the patient's lab results. Orders (Tests/Meds): ORDERS Category Date Time Status XR soft tissue neck Stat Exams 07/23/23 17:15 Completed Medical Decision Narrative: Patient is a 48-year-old female with past medical history anxiety, depression, restless leg syndrome presenting with esophageal foreign body after choking on a water bottle lid. She states that she was inhaling as she was opening with her teeth and believes that it became lodged in her throat, was hemodynamically stable per EMS but vomiting frequently into emesis bag which continues on arrival. We were notified of patient arrival by EMS prior to arrival and I did speak with Dr. White who is still in the building at this time to notify him of possible esophageal foreign body. On arrival patient is managing her airway but is not managing her secretions, not able to tolerate any liquid even viscous lidocaine to help with symptoms. She is able to speak and communicate but notes continued pain in her mid neck concerning for large esophageal foreign body. We did perform an x-ray at bedside which did not show visible foreign body and upper airway seems patent and I am concerned that the foreign body is lower than can be reached at bedside. Given nebulized lidocaine for symptom management. Did speak with Dr. White regarding this who is agreeable with proceeding to the OR for esophageal foreign body removal. Critical Care Critical Care Time Critical Care Time: No
[2023-07-23 18:37] VITALS: BP 103/99; PULSE 103; RESP 26; TEMP 36.8; O2SAT 99
--- NOTE | 2023-07-23 18:43 | HMH.SCOPE ---
Procedure: Date: 07/23/23 Patient Date of :: 1975 Procedure Performed:: Esophagogastroduodenoscopy with retrieval/removal of esophageal foreign body Indications:: Patient is a 48-year-old female. She was drinking bottled water and driving approximately 4:30 PM today on 07/23/2023 at which time she was opening the bottle of water with her teeth and inadvertently swallowed the bottle. She had some cervical pain and had subsequently manage unable to swallow secretions. She will immediately presented to the emergency department by EMS and had findings consistent with esophageal obstruction. Arrangements were made for emergent upper endoscopy. Performing Provider:: Bryant White MD Referring Provider:: . Sedation:: MAC sedation Procedure:: Patient history was obtained and appropriate physical examination was performed. Patient's medications and allergies were reviewed. Informed consent was obtained after explaining the benefits, alternatives, and risks of the procedure including, but not limited to, bleeding, perforation, missed lesions, and adverse reaction to anesthesia medications. Patient was transported to the operating room. Patient was connected to monitoring devices. Throughout the procedure the patient's blood pressure, pulse, and oxygen saturations were monitored continuously. Patient identification and planned procedure were verified by the staff. Patient was positioned in lateral decubitus position. Adequate intravenous sedation was achieved. Olympus endoscope was inserted via the oropharynx. Plastic foreign body was encountered in the proximal esophagus initially at approximately 20 cm. Attempt was made to grasp this with the Owens net unsuccessfully. Attempt was then made to grasp this with the biopsy forceps. With peristalsis and patient relaxation the foreign body migrated distally. Ultimately migrated into the proximal stomach. At this time it was able to be grasped with the Owens net retrieval device and withdrawn with the endoscope and removed in its entirety intact. Endoscope was then reinserted. Gastroesophageal junction was encountered at approximately 40 cm. There is some minor inflammation. Stomach was desufflated and the endoscope was withdrawn. Findings:: Esophageal obstruction secondary to foreign body Recommendations:: Recommend limited diet for 24 hours. Then soft diet Complications:: None immediately apparent Estimated blood obtained (mL): 0 Colonoscopy Component Colonoscopy Component Was a colonoscopy performed during today's procedure?: No
[2023-07-23 18:50] VITALS: BP 132/66; PULSE 82; RESP 19; TEMP 36.1; O2SAT 100
--- NOTE | 2023-07-23 18:55 | P.PNANES_ITS ---
[facility] Disclaimer: The information contained in this section may have been updated after the patient was seen, as this information can be updated by other users. Medical History Acute appendicitis Acute bronchitis Atypical chest pain Back pain Cervical strain, acute Chest pain Degenerative disc disease Dental caries Deviated nasal septum Hematuria Hypothyroid Currently on Synthroid 0.125 mg Nephrolithiasis Sinusitis Spinal stenosis in cervical region Strain of fascia of pelvis UTI (urinary tract infection) Surgical History H/O total hysterectomy History of appendectomy History of left breast biopsy History of thyroidectomy Social History Smoking Status: Current every day smoker tobacco type: cigarettes packs per day: 1 second hand exposure: Yes alcohol intake: never substance use type: former substance user current occupational status: other Travel in the last 8 weeks: None [facility] Anesthesia Checklist Patient Identification Patient Identification: Arm Band, Family (Daughter) and Verbal (Name & ) Structural Data Admitted From: Emergency Dept Planned Operative Procedure/s: EGD w/Removal of Foreign Body Consent for Planned Operative Procedure(s) Verified: Yes Verified Documents: Surgical Consent and History and Physical NPO Status Verified Time NPO: 16:00 Chart Verification Results Verified: CBC, BMP, ECG and Chest Xray Additional verifications Patient : No Anesthesia Reactions: No Cardiovascular Assessment Heart Sounds: S1 & S2 Pulse Rhythm: Irregular Peripheral Edema: No Airway Assessment Mallampati Score:: Class II C-Spine Mobility Assessed: Yes (Limited flexion) TMJ Mobility Assessed: Yes Dentition: Poor Dentition (Nothing loose per pt.) Neurological Assessment Level of Consciousness: Awake, Alert, Appropriate and Follows Commands Hx Seizures: Yes (Infantile) Numbness or tingling in extremities: No Anesthesia Plan Anesthesia Risk discussed: Yes Anesthesia Plan: Verified ASA Class: III (E) Anesthesia Type: MAC
[2023-07-23 18:58] VITALS: BP 141/68; PULSE 84; RESP 20; O2SAT 100
--- NOTE | 2023-07-23 19:02 | P.PNANES_ITS ---
[facility] Anesthesia Record Part I Anesthesia Record I Intake, IV Amount: 300 Hydration: Adequate Estimated blood loss (mL): 0 Urine output (mL): 0 Blood Products used (#): none Blood Pressure: 132/66 SaO2: 100 Pulse Rate: 84 Airway Patency: Patent Respiratory Rate: 16 Temperature: 97.0 F Patient is:: Awake (Talking) and Stable Stable to PACU at:: 18:55
[2023-07-23 19:03] VITALS: BP 132/66; PULSE 84; RESP 16; TEMP 36.1; O2SAT 100
[2023-07-23 19:16] VITALS: BP 144/82; PULSE 90; RESP 19; O2SAT 100
== END 2023-07-23 19:20 | disposition home or self-care (01) ==
LOC: ER 17:57 → SDC 18:52
PROVIDERS: Emergency Provider Emergency Medicine; Visit Provider Surgery
PROC: 0DJ08ZZ Inspection of Upper Intestinal Tract, Via Natural or Artificial Opening Endoscopic (ICD-10-PCS; CPT 43235; principal; 2023-07-23 18:00)
DX: K22.2 Esophageal obstruction (principal); T18.198A Other foreign object in esophagus causing other injury, initial encounter
CPT/HCPCS: 43247; 70360

== ENCOUNTER 2024-04-20 21:17 | Emergency (ER) | payer OTHER, SELFPAY ==
[2024-04-20 21:22] VITALS: BP 161/94; PULSE 88; RESP 22; TEMP 37.4; O2SAT 98; BMI 33.3
--- NOTE | 2024-04-20 21:22 | ED_ITS ---
<Statement entered by Sheila Chowdary DO - 04/20/24 23:03> I was consulted by the STACY, and we discussed the complexity of the problems being addressed. I approved the treatment and management plan for this patient's care in the emergency department, thus performing a substantive portion of the medical decision making. Given possible talar avulsion injury as well as the fracture of the fifth metatarsal, which is likely a pseudo Proctor fracture, I feel the safest option is to have the patient in nonweightbearing status for now pending close follow-up by podiatry. She was given instructions for this. She was given prescription for pain medication. Risk discussed by me and Wilian obtained by me. Patient was discharged with crutches and walking boot after all questions were answered. Strict return precautions were given. Sheila Chowdary DO Discharge Plan Disposition Patient Disposition: Home, Self-Care Condition: Good Prescriptions Prescriptions: No Action levothyroxine 125 mcg tablet 125 mcg PO DAILY Qty: 30 11RF Vraylar 1.5 mg capsule 1.5 mg PO DAILY Qty: 30 2RF Referrals Follow up/Referrals: Tung Le APRN [Primary Care Provider] - See instructions Erin Murphy DPM [Staff Physician] - See instructions Activity Restrictions/Add. Instructions Additional Instructions/Restrictions: You may use weightbearing with your crutches as tolerated. Please call in the morning to make your podiatry appointment. In addition to the medicine sent to the pharmacy you need to take Tylenol alternating every 4 hours with Motrin for pain and swelling. Try to keep your foot elevated with ice compression elevation as tolerated. Clinical Impressions Clinical Impression: Fracture of fifth metatarsal bone of right foot Qualifiers: Encounter type: initial encounter Fracture type: closed Fracture alignment: nondisplaced Qualified Code(s): S92.354A - Nondisplaced fracture of fifth metatarsal bone, right foot, initial encounter for closed fracture Instructions Patient Instructions: DI for Foot Fracture Print Language Print Language: [place] Discharge ED Provider: Sheila Chowdary General Adult HPI General Chief complaint: Extremity Injury, Lower Stated complaint: [id number]/20@2100 RT ankle inj Time Seen by Provider: 04/20/24 21:22 History of Present Illness HPI narrative: Patient presents for evaluation of right ankle injury. Patient states that she was running up her stairs when her foot slipped and she felt a pop. She fell upwards not downwards and suffered no other injury. She was unable to bear weight according to her and came to the ER for evaluation. She denies any numbness or tingling loss of sensation. Related Data Previous Rx's ?Medication ?Instructions ?Recorded levothyroxine 125 mcg tablet 125 mcg PO DAILY Thyroid #30 tabs 06/09/23 cariprazine 1.5 mg capsule 1.5 mg PO DAILY #30 caps 03/03/24 (Vraylar) Allergies Allergy/AdvReac Type Severity Reaction Status Date / Time iodine Allergy Intermediate I-RASH Verified 03/03/24 11:19 shellfish derived (From Allergy Mild UNK Verified 03/03/24 11:19 SHELLFISH (FOOD/DRUG)) liliac Allergy Intermediate rash Uncoded 03/03/24 11:19 [facility] Disclaimer: The information contained in this section may have been updated after the patient was seen, as this information can be updated by other users. Medical History (Updated 04/20/24 @ 22:15 by NOELLE Celeste) Acute appendicitis Dental caries Deviated nasal septum Degenerative disc disease Spinal stenosis in cervical region Hypothyroid Hematuria Back pain Sinusitis Atypical chest pain Nephrolithiasis UTI (urinary tract infection) Strain of fascia of pelvis Cervical strain, acute Acute bronchitis Surgical History History of thyroidectomy History of left breast biopsy History of appendectomy H/O total hysterectomy Social History Smoking Status: Current every day smoker tobacco type: cigarettes packs per day: 1 second hand exposure: Yes alcohol intake: never substance use type: former substance user current occupational status: other Travel in the last 8 weeks: None Other Medical History Have you received the Flu Vaccine for this season: No Have you received the Pneumonia Vaccine: No ROS Obtained: Yes Systems reviewed as appropriate & no additional complaints except as documented Physical Exam General General appearance: alert and in no apparent distress Eye Eye exam: Present EOMI Respiratory Respiratory exam: Present normal lung sounds bilaterally Cardiovascular Cardiovascular exam: Present regular rate Neurological Exam Neurological exam: Present alert and oriented X3 Medical Decision Making Medical Records Screening: Per USPSTF and CDC recommendations, given the prevalence of disease in our region, it is our hospital?s policy to screen for HIV and viral Hepatitis for all patients aged 18 and over and those with ongoing risk factors. Wilian Inquiry Pt receiving controlled substance: No Vital Signs: 04/20/24 21:22 Temperature 99.4 F Temperature Source Oral Pulse Rate [Right Brachial] 88 Respiratory Rate 22 Blood Pressure [Right Arm] 161/94 H Blood Pressure Mean [Right Arm] 116 Blood Pressure Source [Right Arm] Automatic Cuff Blood Pressure Position [Right Arm] Sitting 02 Sat by Pulse Oximetry 98 Oxygen Delivery Method Room Air Orders (Tests/Meds): ED MEDICATIONS Discontinued Medications Generic Name Dose Route Start Last Admin Trade Name Freq PRN Reason Stop Dose Admin Acetaminophen 1,000 mg 04/20/24 21:24 04/20/24 21:39 Acetaminophen 500mg Tab PO 04/20/24 21:25 1,000 mg ONCE ONE Administration Ibuprofen 800 mg 04/20/24 21:24 04/20/24 21:39 Ibuprofen 400 Mg Tablet PO 04/20/24 21:25 800 mg ONCE ONE Administration ORDERS Category Date Time Status Ankle XR -Right minimum 3 Views [XR ankle RT min 3V] Exams 04/20/24 21:24 Taken Stat Foot XR right minimum 3 views [XR foot RT min 3V] Stat Exams 04/20/24 21:24 Taken Tibia/fibula XR right 2 views [XR tibia fibula RT 2V] Exams 04/20/24 21:24 Taken Stat HIV (1&2) Antibody Rapid Stat Lab 04/20/24 21:25 Ordered Hep C Ab with Reflex to RNA Stat Lab 04/20/24 21:25 Ordered Medical Decision Narrative: In summary patient is a 48-year-old female who presents to the emergency department for evaluation of right ankle injury. Patient is dynamically stable upon arrival, afebrile. Physical exam is remarkable for visible swelling and ecchymosis at the bilateral malleoli, right greater than left and across the top of the foot without palpable bony deformity. Patient has positive DP PT pulses. She can wiggle toes however she has painful range of motion at the ankle. Differential diagnosis includes brain versus fracture. Initial workup will be conducted with plain film x-rays. Initial interventions include Tylenol ibuprofen. Initial workup reviewed by me and my informal interpretation shows a pseudo Proctor fracture of the fifth metatarsal. Given this patient will be placed in a walking boot and crutches and be weightbearing as tolerated with referral to Dr. Murphy of podiatry Critical Care Critical Care Time Critical Care Time: No
--- NOTE | 2024-04-20 21:24 | XR_ITS ---
PROCEDURE INFORMATION: Exam: XR Right Foot Exam date and time: 04/20/2024 9:42 PM Age: 48 years old Clinical indication: Pain; Foot; Right; Additional info: Fall TECHNIQUE: Imaging protocol: Radiologic exam of the right foot. Views: 3 or more views. COMPARISON: CR XR TIBIA FIBULA RT 2V 04/20/2024 9:39 PM FINDINGS: Bones/joints: Nondisplaced fracture through the base of the 5th metatarsal. Possible avulsion fracture off of the distal dorsal talus. No other fracture evident. Soft tissues: Normal. IMPRESSION: Proximal 5th metatarsal fracture and potential avulsion fracture of the distal dorsal talus.
--- NOTE | 2024-04-20 21:24 | XR_ITS ---
PROCEDURE INFORMATION: Exam: XR Right Tibia and Fibula Exam date and time: 04/20/2024 9:39 PM Age: 48 years old Clinical indication: Pain; Lower leg; Right; Additional info: Fall TECHNIQUE: Imaging protocol: Radiologic exam of the right tibia and fibula. Views: 2 views. COMPARISON: CR XR ANKLE RT MIN 3V 04/20/2024 9:37 PM FINDINGS: Bones/joints: Normal. No acute fracture identified. Soft tissues: Normal. IMPRESSION: No acute findings.
--- NOTE | 2024-04-20 21:24 | XR_ITS ---
PROCEDURE INFORMATION: Exam: XR Right Ankle Exam date and time: 04/20/2024 9:37 PM Age: 48 years old Clinical indication: Pain; Ankle; Right; Additional info: Fall TECHNIQUE: Imaging protocol: Radiologic exam of the right ankle. Views: 3 or more views. COMPARISON: No relevant prior studies available. FINDINGS: Bones/joints: See Soft tissues finding. Soft tissues: Soft tissue swelling laterally. Nondisplaced fracture of the base of the 5th metatarsal. Possible subtle avulsion fracture off of the distal dorsal talus. No other fracture identified. IMPRESSION: Proximal 5th metatarsal fracture. Possible avulsion fracture of the distal dorsal talus.
[2024-04-20 21:30] VITALS: BP 163/82; PULSE 82
[2024-04-20] MEDS: ACETAMINOPHEN 500MG TAB 1000 MG PO (21:39)
[2024-04-20] MEDS: IBUPROFEN 400 MG TABLET 800 MG PO (21:39)
--- NOTE | 2024-04-20 21:45 | PC.NURSE ---
Pt t xray via wheelchair
--- NOTE | 2024-04-20 21:57 | PC.NURSE ---
Pt back from xray
[2024-04-20 22:00] VITALS: BP 160/99; PULSE 76; O2SAT 99
[2024-04-20] MEDS: OXYCODONE 5MG IMMEDIATE RELEASE TABLET 5 MG PO (22:28)
[2024-04-20 22:48] VITALS: BP 153/87; PULSE 71; RESP 20; TEMP 37.2; O2SAT 99
== END 2024-04-20 23:00 | disposition home or self-care (01) ==
PROVIDERS: Emergency Provider Emergency Medicine; PCP Nurse Practitioner Family
DX: S92.151A Displaced avulsion fracture (chip fracture) of right talus, initial encounter for closed fracture (principal); S92.351A Displaced fracture of fifth metatarsal bone, right foot, initial encounter for closed fracture; M25.571 Pain in right ankle and joints of right foot; W10.8XXA Fall (on) (from) other stairs and steps, initial encounter; Y93.89 Activity, other specified; Y92.008 Other place in unspecified non-institutional (private) residence as the place of occurrence of the external cause
CPT/HCPCS: 73590; 73610; 73630; 99283

== ENCOUNTER 2024-05-03 15:01 | Outpatient (CLI) | payer OTHER, SELFPAY ==
--- NOTE | 2024-05-03 15:04 | XR_ITS ---
FINAL REPORT CLINICAL HISTORY: 5th met fracture COMPARISON: 05/06/2024 FINDINGS: Right foot Three views were obtained. There is a fracture of the proximal fifth metatarsal. Mild degenerative changes are present. There is a plantar calcaneal spur. There is a fracture involving the anterior process of the calcaneus. There is a small avulsion fracture of the superior distal talus. IMPRESSION: Fractures as above. Reviewed, Interpreted and Dictated by Bryant Forbes III, MD Transcribed by Brenda Pickard Authenticated and . [facility]
== END 2024-05-03 23:59 | disposition home or self-care (01) ==
LOC: RAD 15:03
PROVIDERS: PCP Nurse Practitioner Family; Visit Provider Podiatrist
DX: S92.354A Nondisplaced fracture of fifth metatarsal bone, right foot, initial encounter for closed fracture (principal)
CPT/HCPCS: 73630

== ENCOUNTER 2024-05-06 07:18 | Outpatient (CLI) | payer OTHER, SELFPAY ==
--- NOTE | 2024-05-06 07:22 | CT_ITS ---
FINAL REPORT CLINICAL HISTORY: Right foot injury, displaced fracture FINDINGS: CT RIGHT FOOT WITHOUT CONTRAST TECHNIQUE: Axial and reformatted sagittal and coronal images were obtained of the right foot. This study was performed with techniques to keep radiation doses as low as reasonably achievable, (ALARA). Individualized dose reduction techniques using automated exposure control or adjustment of mA and/or kV according to the patient's size were employed. FINDINGS: There is a mild compression fracture of the anterior process of the calcaneus best seen on sagittal image 22. There is a 4 mm calcification adjacent to the superior, distal talus consistent with an avulsion fracture. There is a mild comminuted fracture of the proximal fifth metatarsal with up to 3 mm of distraction. Small calcaneal spurs are noted. There is dorsal foot soft tissue swelling. IMPRESSION: Multiple fractures as above. Reviewed, Interpreted and Dictated by Bryant Forbes III, MD Transcribed by Sheyla Sanz Authenticated and [facility]
== END 2024-05-06 23:59 | disposition home or self-care (01) ==
LOC: RAD 07:19
PROVIDERS: PCP Nurse Practitioner Family; Visit Provider Podiatrist
DX: S92.354A Nondisplaced fracture of fifth metatarsal bone, right foot, initial encounter for closed fracture (principal)
CPT/HCPCS: 73700

== ENCOUNTER 2024-05-30 13:37 | Emergency (ER) | payer OTHER, SELFPAY ==
[2024-05-30 14:11] VITALS: BP 154/92; PULSE 76; RESP 18; TEMP 36.6; O2SAT 99; BMI 34.9
--- NOTE | 2024-05-30 14:28 | ED_ITS ---
<Statement entered by Jody Ramírez MD - 06/02/24 15:30> I was consulted by the STACY, and we discussed the complexity of the problems being addressed. I approved the treatment and management plan for this patient's care in the emergency department, thus performing a substantive portion of the medical decision making. Jody Ramírez MD, FARIBA, FACEP Discharge Plan Disposition Patient Disposition: Home, Self-Care Condition: Good Prescriptions Prescriptions: New methocarbamol 750 mg tablet 750 mg PO Q6H PRN (Reason: muscle spasm) Qty: 20 0RF lidocaine 5 % adhesive patch,medicated 1 patch topical DAILY Qty: 30 0RF Rx Instructions: leave on most painful area for up to 12 hrs No Action levothyroxine 125 mcg tablet 125 mcg PO DAILY Qty: 30 11RF ibuprofen 800 mg tablet 800 mg PO Q8H Qty: 90 0RF cholecalciferol (vitamin D3) 1,250 mcg (50,000 unit) capsule 1,250 mcg PO WEEKLY 84 Days Qty: 12 2RF methylprednisolone 4 mg tablets,dose pack 4 mg PO PER PKG DIR Qty: 21 0RF gabapentin 100 mg capsule 100 mg PO TID PRN (Reason: nerve pain) 10 Days Qty: 30 0RF Rx Instructions: Take one pill every 8hrs as needed for severe nerve pain. Referrals Follow up/Referrals: Tung Le APRN [Primary Care Provider] - See instructions Activity Restrictions/Add. Instructions Additional Instructions/Restrictions: As we discussed follow-up with your PCP this week for recheck. You need to be investigated for microscopic hematuria. I have sent Robaxin and Lidoderm patches to your pharmacy. In addition of those please continue taking Tylenol and Motrin for your muscle spasms. Return to ER for any worsening signs or symptoms as needed Clinical Impressions Clinical Impression: Lumbar muscle pain, Hematuria, microscopic Instructions Patient Instructions: DI for Low Back Pain Print Language Print Language: Citizen Of [place] Discharge ED Provider: Rolan Oliver General Adult HPI General Chief complaint: Back Pain/Injury Stated complaint: Pain lower r back/side Time Seen by Provider: 05/30/24 14:28 History of Present Illness HPI narrative: Patient presents from her PCPs office for acute low back pain and urine dipstick positive hematuria. Patient reports that right low back pain since last night. She gives a history of an avulsion injury of the right talus has been in a walking boot since 04/20/2024. She thinks there could be some possibility that this is contributory however prior to last evening she had no low back discomfort. Patient states that she pulled her bed out from the wall to make it and felt a small pull in her right low back. She reports that it did a some but did not incapacitate her last evening. However today she has had unrelenting right low back pain. It does not radiate. She denies dysuria hematuria nausea vomiting diarrhea abdominal pain. She saw her PCP for this today and a dipstick was performed in the office that showed a small amount of hematuria. She was subsequently sent to the ER for further evaluation. Related Data Previous Rx's ?Medication ?Instructions ?Recorded levothyroxine 125 mcg tablet 125 mcg PO DAILY Thyroid #30 tabs 06/09/23 ibuprofen 800 mg tablet 800 mg PO Q8H #90 tabs 04/26/24 cholecalciferol (vitamin D3) 1,250 1,250 mcg PO WEEKLY 12 weeks #12 05/12/24 mcg (50,000 unit) capsule caps gabapentin 100 mg capsule 100 mg PO TID PRN nerve pain 10 05/16/24 days #30 caps methylprednisolone 4 mg tablets in 4 mg PO PER PKG DIR Pain, swelling 05/16/24 a dose pack #21 tabs lidocaine 5 % topical patch 1 patch topical DAILY #30 ea 05/30/24 methocarbamol 750 mg tablet 750 mg PO Q6H PRN muscle spasm #20 05/30/24 tabs Allergies Allergy/AdvReac Type Severity Reaction Status Date / Time iodine Allergy Intermediate I-RASH Verified 05/16/24 09:25 shellfish derived (From Allergy Mild UNK Verified 05/16/24 09:25 SHELLFISH (FOOD/DRUG)) liliac Allergy Intermediate rash Uncoded 03/03/24 11:19 [facility] Disclaimer: The information contained in this section may have been updated after the patient was seen, as this information can be updated by other users. Medical History (Updated 05/30/24 @ 17:10 by NOELLE Celeste) Nephrolithiasis Acute appendicitis Dental caries Deviated nasal septum Degenerative disc disease Spinal stenosis in cervical region Hypothyroid Hematuria Back pain Sinusitis Atypical chest pain UTI (urinary tract infection) Strain of fascia of pelvis Cervical strain, acute Acute bronchitis Surgical History History of thyroidectomy History of left breast biopsy History of appendectomy H/O total hysterectomy Social History Smoking Status: Former smoker tobacco type: cigarettes packs per day: 1 second hand exposure: Yes alcohol intake: never substance use type: former substance user current occupational status: other Travel in the last 8 weeks: None Have you lived/traveled outside [place] in past 30 days?: No Contact w/someone who lives/traveled outside US past 30 days?: No Exposure to someone with infectious disease in past 14 days?: No Do you have a fever (greater than 100.4 F or 38 C)?: No Have you tested positive for COVID-19: No Exposed to someone with COVID-19 in past 14 days?: No Do you have a sore throat?: No Do you have a cough?: No Do you have any weakness?: No Do you have any diarrhea?: No Are you experiencing any unusual bleeding?: No Do you have any muscle aches/pain?: Yes Do you have any abdominal pain?: No Are you experiencing loss of taste or smell?: No Other Medical History Have you received the Flu Vaccine for this season: No Have you received the Pneumonia Vaccine: No ROS Obtained: Yes Systems reviewed as appropriate & no additional complaints except as documented Physical Exam General General appearance: alert and in no apparent distress Respiratory Respiratory exam: Present normal lung sounds bilaterally Cardiovascular Cardiovascular exam: Present regular rate Neurological Exam Neurological exam: Present alert and oriented X3 Medical Decision Making Medical Records Medical records reviewed: Yes I reviewed the patient's medical records. Screening: Per USPSTF and CDC recommendations, given the prevalence of disease in our region, it is our hospital?s policy to screen for HIV and viral Hepatitis for all patients aged 18 and over and those with ongoing risk factors. Wilian Inquiry Pt receiving controlled substance: No Vital Signs: 05/30/24 14:11 05/30/24 17:22 05/30/24 17:23 Temperature 97.9 F 98.3 F 97.8 F Temperature Source Oral Oral Oral Pulse Rate 88 60 Pulse Rate [Right] 76 Respiratory Rate 18 18 18 Blood Pressure 158/86 H 158/86 H Blood Pressure [Right Arm] 154/92 H Blood Pressure Mean [Right Arm] 112 Blood Pressure Source Automatic Cuff Automatic Cuff Blood Pressure Source [Right Arm] Automatic Cuff Blood Pressure Position [Right Arm] Supine 02 Sat by Pulse Oximetry 99 Oxygen Delivery Method Room Air Room Air Room Air Lab Data Lab results reviewed: Yes I reviewed the patient's lab results. Lab Results 05/30/24 13:10: Urine Color Yellow, Urine Appearance Clear, Urine pH 6.0, Ur Specific [place] >= 1.030, Urine Protein Negative, Urine Glucose (UA) Negative, Urine Ketones Negative, Urine Blood Trace-i, Urine Nitrate Negative, Urine Bilirubin Negative, Urine Urobilinogen 0.2, Ur Leukocyte Esterase Negative, Urine RBC 3-5, Urine WBC Occasional, Ur Squamous Epith Cells 5-10, Urine Bacteria None 05/30/24 14:09: WBC 8.9, RBC 4.17 L, Hgb 12.3, Hct 37.4, MCV 89.7, MCH 29.5, MCHC 32.9, RDW 12.2, Plt Count 341, MPV 10.2, Neut % (Auto) 68.2, Lymph % (Auto) 23.7, Bureau % (Auto) 6.6, Eos % (Auto) 0.7, Baso % (Auto) 0.6, Neut # (Auto) 6.1, Lymph # (Auto) 2.1, Bureau # (Auto) 0.6, Eos # (Auto) 0.1, Baso # (Auto) 0.1, S odium 134 L, Potassium 3.9, Chloride 101, Carbon Dioxide 29, Anion Gap 7.9, BUN 13, Creatinine 0.70, Estimated Creat Clear 149, Estimated GFR 90, Est GFR ( Amer) 109, Glucose 103 H, Calcium 9.4, Total Bilirubin 0.4, AST 54 H, ALT 63, Alkaline Phosphatase 119, Total Protein 7.0, Albumin 4.2, Globulin 2.8, Albumin/Globulin Ratio 1.5, HIV Ag/Ab Combo Qual Negative 05/30/24 14:09 05/30/24 14:09 Orders (Tests/Meds): ED MEDICATIONS Discontinued Medications Generic Name Dose Route Start Last Admin Trade Name Freq PRN Reason Stop Dose Admin Acetaminophen 1,000 mg 05/30/24 14:37 05/30/24 14:46 Acetaminophen 500mg Tab PO 05/30/24 14:38 1,000 mg ONCE ONE Administration Dexamethasone Sodium Phosphate 10 mg 05/30/24 14:37 05/30/24 14:47 Dexamethasone 4mg/Ml 5ml Mdv IV 05/30/24 14:38 6 mg ONCE ONE Administration Ketorolac Tromethamine 15 mg 05/30/24 14:37 05/30/24 14:46 Ketorolac 30mg/Ml Vial IV 05/30/24 14:38 15 mg ONCE ONE Administration Lidocaine 1 each 05/30/24 14:37 05/30/24 14:46 Lidocaine 5% Transdermal Patch TP 05/30/24 14:38 1 each ONCE ONE Administration Methocarbamol 500 mg 05/30/24 14:37 05/30/24 15:56 Methocarbamol 500mg Tablet PO 05/30/24 14:38 500 mg ONCE ONE Administration ORDERS Category Date Time Status CT abdomen pelvis wo con Stat Cat Scan 05/30/24 14:38 Completed CBC w/Auto Diff [Complete Blood Count Auto Diff] Stat Lab 05/30/24 14:09 Completed CMP [Comprehensive Metabolic Panel] Stat Lab 05/30/24 14:09 Completed HIV Combo Stat Lab 05/30/24 14:09 Completed Hep C Ab with Reflex to RNA Stat Lab 05/30/24 14:09 Received UA [Urinalysis and Microscopic] Stat Lab 05/30/24 13:10 Completed Medical Decision Narrative: In summary patient is a 49-year-old female who presents to the emergency department for evaluation of right low back pain. Patient is hemodynamically stable upon arrival, afebrile. Physical exam is remarkable for exquisite tenderness to palpation in the right lumbar paraspinous musculature without rebound or guarding or rigidity. Patient is neurovascularly tact in the right lower extremity distally with good pulses motor and sensory however any range of motion testing of the right lower extremity causes increasing pain in her right low back. She has no abdominal tenderness no rebound or guarding or rigidity.. Differential diagnosis includes muscle spasm versus kidney stone, low versus asymptomatic hematuria etc. Initial workup will be conducted with hematologic labs urinalysis CT scan stone protocol. Initial interventions include Tylenol Toradol Decadron Lidoderm Robaxin. Initial workup reviewed by me shows that her hematologic labs are nonactionable, urinalysis is bland, and my informal interpretation of her CT scan stone protocol shows no evidence of stone or other intra-abdominal pathology. Upon repeat evaluation patient reported moderate improvement after initial intervention. Given this patient is appropriate for discharge with a prescription for Lidoderm Robaxin and close follow-up with her PCP for no improvement. Critical Care Critical Care Time Critical Care Time: No
--- NOTE | 2024-05-30 14:38 | CT_ITS ---
FINAL REPORT TECHNIQUE: Thin section axial images were obtained from the lung bases to the pubic symphysis without IV contrast. Coronal reconstruction images were obtained from the axial data. Exam was performed using dose reduction technique. CLINICAL HISTORY: Right low back pain, hematuria COMPARISON: FINDINGS: There is a stable pulmonary cyst in the right middle lobe. Lungs bases are otherwise clear. There are tiny bilateral nonobstructing renal stones. There is no hydronephrosis or perinephric stranding. The gallbladder is present. The remaining unenhanced solid abdominal organs are unremarkable. There is no evidence of small bowel obstruction. The appendix is surgically absent. GI tract is without acute abnormality. There is no lymphadenopathy or ascites. No acute osseous abnormality is identified. IMPRESSION: Bilateral, nonobstructing renal stones. Reviewed, Interpreted and Dictated by Krissy Licona MD Transcribed by Jayde Amos Authenticated and [facility]
[2024-05-30 14:44] LABS: Microscopic, Urine URINE MICROSCOPIC (MICROSCOPIC)
[2024-05-30 14:45] LABS: Eosinophils # 0.1 K/mm3 (0.0-0.4); Hemoglobin 12.3 g/dL (12.2-16.2); Monocytes # 0.6 K/mm3 (0.1-1.0); Red Cell Distribution Width 12.2 % (11.5-17.5); White Blood Count 8.9 K/mm3 (4.8-10.8)
[2024-05-30] MEDS: ACETAMINOPHEN 500MG TAB 1000 MG PO (14:46)
[2024-05-30] MEDS: KETOROLAC 30MG/ML VIAL 15 MG IV (14:46)
[2024-05-30] MEDS: LIDOCAINE 5% TRANSDERMAL PATCH 1 EACH TP (14:46)
[2024-05-30] MEDS: DEXAMETHASONE 4MG/ML 5ML MDV 10 MG IV (14:47)
[2024-05-30 14:51] LABS: Albumin Level 4.2 g/dl (3.5-5.0); Chloride 101 mmol/L (98-107); Potassium 3.9 mmoL/L (3.5-5.1); Sodium 134 mmol/L (136-145)
[2024-05-30 14:54] LABS: Alanine Aminotransferase 63 U/L (12-78); Albumin/Globulin Ratio 1.5 (1.1-1.8); Alkaline Phosphatase 119 U/L (38-126); Anion Gap 7.9 mEq/L (5-15); Aspartate Amino Transferase 54 U/L (14-36); Bilirubin,Total 0.4 mg/dl (0.2-1.3); Blood Urea Nitrogen 13 mg/dl (7-17); Calcium 9.4 mg/dl (8.4-10.2); Carbon Dioxide 29 mmol/L (22.0-30.0); Creatinine Clearance Estimated 149 mL/min (50-200); Estimated Glomerular Filt Rate 90 ml/min (>60); GFR (African American) 109 ML/MIN (>60); Globulin 2.8 g/dL (1.3-3.2); Glucose 103 mg/dl (74-100)
[2024-05-30 15:17] LABS: Appearance,Urine CLEAR (Clear); Bilirubin,Urine Negative (Negative); Blood, Urine TRACE-I (Negative); Color,Urine YELLOW (Yellow); Glucose,Urine (UA) Negative (Negative); Ketones,Urine Negative (Negative); Leukocyte Esterase,Urine Negative (Negative); Nitrate,Urine Negative (Negative); Protein,Urine Negative (Negative); Specific Gravity, Urine >= 1.030 (1.005-1.030); Urobilinogen,Urine 0.2 EU/dl (0.2)
[2024-05-30 15:36] LABS: WBC,Urine Occasional #/hpf (0-3)
[2024-05-30] MEDS: METHOCARBAMOL 500MG TABLET 500 MG PO (15:56)
[2024-05-30 16:01] LABS: HIV Combo NEGATIVE (Negative)
[2024-05-30 16:49] LABS: Basophils # 0.1 K/mm3 (0-0.2); Basophils % 0.6 % (0.1-2.0); Eosinophils % 0.7 % (0.1-12.0); Hematocrit 37.4 % (37.0-47.0); Lymphocytes # 2.1 K/mm3 (0.7-4.5); Lymphocytes % 23.7 % (10-50); Mean Corpuscular HGB Conc 32.9 g/dL (31.8-35.4); Mean Corpuscular Hemoglobin 29.5 pg (27.0-31.2); Mean Corpuscular Volume 89.7 fl (81-99); Mean Platelet Volume 10.2 fl (7.4-10.4); Monocytes % 6.6 % (1.7-9.3); Neutrophils # 6.1 K/mm3 (1.8-7.8); Neutrophils % 68.2 % (37.0-80.0); Platelet Count 341 K/mm3 (142-424); Red Blood Count 4.17 M/mm3 (4.20-5.40)
[2024-05-30 17:22] VITALS: BP 158/86; PULSE 88; RESP 18; TEMP 36.8; O2SAT 98
[2024-05-30 17:23] VITALS: BP 158/86; PULSE 60; RESP 18; TEMP 36.6
[2024-06-03 15:16] LABS: HCV Ab Reactive (Non Reactive)
== END 2024-05-30 17:16 | disposition home or self-care (01) ==
PROVIDERS: Physician Assistant; Emergency Provider Emergency Medicine; PCP Nurse Practitioner Family
DX: M79.18 Myalgia, other site (principal); R31.29 Other microscopic hematuria; M54.50 Low back pain, unspecified; R31.9 Hematuria, unspecified
CPT/HCPCS: 74176; 80053; 81001; 85025; 86803; 87389; 96374; 96375; 99284; J1100; J1885

== ENCOUNTER 2024-06-10 14:58 | Outpatient (CLI) | payer OTHER, SELFPAY ==
[2024-06-10 15:17] LABS: Basophils % 0.5 % (0.1-2.0); Eosinophils # 0.1 K/mm3 (0.0-0.4); Hematocrit 38.7 % (37.0-47.0); Hemoglobin 12.9 g/dL (12.2-16.2); Lymphocytes # 1.9 K/mm3 (0.7-4.5); Lymphocytes % 23.3 % (10-50); Mean Corpuscular HGB Conc 33.3 g/dL (31.8-35.4); Mean Corpuscular Hemoglobin 29.9 pg (27.0-31.2); Mean Corpuscular Volume 89.6 fl (81-99); Mean Platelet Volume 9.6 fl (7.4-10.4); Monocytes # 0.6 K/mm3 (0.1-1.0); Monocytes % 7.2 % (1.7-9.3); Neutrophils # 5.4 K/mm3 (1.8-7.8); Neutrophils % 67.7 % (37.0-80.0); Platelet Count 351 K/mm3 (142-424); Red Blood Count 4.32 M/mm3 (4.20-5.40); Red Cell Distribution Width 12.4 % (11.5-17.5)
[2024-06-10 15:32] LABS: INR 0.86 (0.9-1.1); Prothrombin Time 9.6 seconds (9.2-12.1)
[2024-06-10 15:41] LABS: Albumin Level 4.3 g/dl (3.5-5.0); Chloride 105 mmol/L (98-107); Potassium 4.2 mmoL/L (3.5-5.1); Sodium 135 mmol/L (136-145)
[2024-06-10 15:44] LABS: Alanine Aminotransferase 63 U/L (12-78); Albumin/Globulin Ratio 1.7 (1.1-1.8); Alkaline Phosphatase 116 U/L (38-126); Anion Gap 8.2 mEq/L (5-15); Aspartate Amino Transferase 44 U/L (14-36); Bilirubin,Total 0.4 mg/dl (0.2-1.3); Carbon Dioxide 26 mmol/L (22.0-30.0); Globulin 2.5 g/dL (1.3-3.2); Total Protein,Serum 6.8 g/dl (6.3-8.2)
[2024-06-10 15:45] LABS: Calcium 9.6 mg/dl (8.4-10.2); Glucose 119 mg/dl (74-100)
[2024-06-10 15:49] LABS: Blood Urea Nitrogen 16 mg/dl (7-17)
[2024-06-10 15:50] LABS: Estimated Glomerular Filt Rate 90 ml/min (>60); GFR (African American) 109 ML/MIN (>60)
[2024-06-11 06:38] LABS: Hep A Ab, Total Negative (Negative); Hep B Core Ab, Total Negative (Negative); Hep B Surface Ab, Qual Reactive (.); Hepatitis B Surface Antigen Negative (Negative)
[2024-06-13 16:09] LABS: Hepatitis C Genotype 1a (.)
== END 2024-06-10 23:59 | disposition home or self-care (01) ==
LOC: LAB 14:59
PROVIDERS: PCP Nurse Practitioner Family; Visit Provider Nurse Practitioner Family
DX: B19.20 Unspecified viral hepatitis C without hepatic coma (principal)
CPT/HCPCS: 36415; 80053; 85025; 85610; 86704; 86706; 86708; 87340; 87902

== ENCOUNTER 2024-09-04 00:50 | Emergency (ER) | payer SELFPAY ==
[2024-09-04 01:03] VITALS: BP 162/80; PULSE 74; RESP 20; TEMP 36.4; O2SAT 100; BMI 36.0
--- NOTE | 2024-09-04 01:03 | XR_ITS ---
PROCEDURE INFORMATION: Exam: XR Chest Exam date and time: 09/04/2024 1:19 AM Age: 49 years old Clinical indication: Other: Arm pain; Additional info: Cp nausea arm pain TECHNIQUE: Imaging protocol: Radiologic exam of the chest. Views: 1 view. COMPARISON: CR XR CHEST PORTABLE 12/25/2020 5:25 PM FINDINGS: Lungs: Unremarkable. No consolidation. Pleural spaces: Unremarkable. No pleural effusion. No pneumothorax. Heart/Mediastinum: Unremarkable. No cardiomegaly. Bones/joints: Unremarkable. IMPRESSION: No acute findings.
--- NOTE | 2024-09-04 01:03 | CT_ITS ---
PROCEDURE INFORMATION: Exam: CTA Chest With Contrast Exam date and time: 09/04/2024 1:27 AM Age: 49 years old Clinical indication: Other: Nausea, sweating, arm pain TECHNIQUE: Imaging protocol: Computed tomographic angiography of the chest with contrast. Exam focused on the arteries. 3D rendering (Not supervised by radiologist): MIP and/or 3D reconstructed images were created by the technologist. Radiation optimization: All CT scans at this facility use at least one of these dose optimization techniques: automated exposure control; mA and/or kV adjustment per patient size (includes targeted exams where dose is matched to clinical indication); or iterative reconstruction. Contrast material: ISOVUE; Contrast volume: 80 ml; Contrast route: INTRAVENOUS (IV); COMPARISON: CR XR CHEST PORTABLE 09/04/2024 1:19 AM FINDINGS: Pulmonary arteries: Normal. No pulmonary emboli. Aorta: Unremarkable. No aortic aneurysm. No aortic dissection. Lungs: Well-defined, non complicated right middle lobar cyst measuring 4.1 x 5.1 cm. Otherwise, unremarkable lungs. Pleural spaces: Unremarkable. No pneumothorax. No pleural effusion. Heart: Unremarkable. No cardiomegaly. No pericardial effusion. Lymph nodes: Unremarkable. No enlarged lymph nodes. Bones/joints: Unremarkable. No acute fracture. Soft tissues: Unremarkable. IMPRESSION: 1. No central or segmental pulmonary arterial embolism identified. 2. Etiology indeterminate, simple right middle lobar pneumatocele, without complicated features.
--- NOTE | 2024-09-04 01:03 | CT_ITS ---
PROCEDURE INFORMATION: Exam: CT Abdomen And Pelvis With Contrast Exam date and time: 09/04/2024 1:27 AM Age: 49 years old Clinical indication: Abdominal pain; Generalized; Additional info: Nausea diarrhea chest pain arm pain TECHNIQUE: Imaging protocol: Computed tomography of the abdomen and pelvis with contrast. 3D rendering (Not supervised by radiologist): MIP and/or 3D reconstructed images were created by the technologist. Radiation optimization: All CT scans at this facility use at least one of these dose optimization techniques: automated exposure control; mA and/or kV adjustment per patient size (includes targeted exams where dose is matched to clinical indication); or iterative reconstruction. Contrast material: ISOVUE; Contrast volume: 80 ml; Contrast route: IV; COMPARISON: CT ABDOMEN PELVIS WO CON 05/30/2024 3:04 PM FINDINGS: Liver: Mild fatty infiltration. Measuring 19 cm. No mass. Gallbladder and biliary ducts: Normal. No calcified stones. No ductal dilation. Pancreas: Normal. No ductal dilation. Spleen: Normal. No splenomegaly. Adrenal glands: Normal. No mass. Kidneys and ureters: Normal. No hydronephrosis. Stomach and bowel: Unremarkable. No obstruction. No mucosal thickening. Appendix: Not visualized. Intraperitoneal space: Unremarkable. No free air. No significant fluid collection. Vasculature: Unremarkable. No abdominal aortic aneurysm. Lymph nodes: Unremarkable. No enlarged lymph nodes. Urinary bladder: Unremarkable as visualized. Reproductive: Unremarkable as visualized. Bones/joints: Unremarkable. No acute fracture. Soft tissues: Unremarkable. IMPRESSION: 1. No acute findings. 2. Hepatomegaly with mild fatty infiltration.
--- NOTE | 2024-09-04 01:04 | ECG_ITS ---
APPROVED REPORT Exam: Resting ECG HR:64 bpm ECG Measurements Heart Rate 64 AXES SC 133 P 47 QRSd 103 QRS 57 QT 419 T 68 QTc 429 Conclusion SINUS RHYTHM Q waves in inferior leads but no ST elevation or reciprocal changes, no STEMI Electronically signed by : MIGUEL CARD, 09/04/2024 05:46:18
[2024-09-04 01:12] LABS: Basophils % 0.5 % (0.1-2.0); Eosinophils # 0.1 K/mm3 (0.0-0.4); Hematocrit 44.9 % (37.0-47.0); Hemoglobin 14.8 g/dL (12.2-16.2); Lymphocytes # 2.5 K/mm3 (0.7-4.5); Lymphocytes % 28.2 % (10-50); Mean Corpuscular Hemoglobin 29.7 pg (27.0-31.2); Mean Platelet Volume 10.2 fl (7.4-10.4); Monocytes # 0.7 K/mm3 (0.1-1.0); Monocytes % 7.6 % (1.7-9.3); Neutrophils # 5.5 K/mm3 (1.8-7.8); Neutrophils % 62.4 % (37.0-80.0); Platelet Count 337 K/mm3 (142-424); Red Blood Count 4.99 M/mm3 (4.20-5.40); Red Cell Distribution Width 12.4 % (11.5-17.5); White Blood Count 8.8 K/mm3 (4.8-10.8)
[2024-09-04 01:18] LABS: Alanine Aminotransferase 71 U/L (12-78); Albumin Level 4.9 g/dl (3.5-5.0); Albumin/Globulin Ratio 1.3 (1.1-1.8); Alkaline Phosphatase 143 U/L (38-126); Anion Gap 14.9 mEq/L (5-15); Aspartate Amino Transferase 57 U/L (14-36); Bilirubin,Total 0.5 mg/dl (0.2-1.3); Blood Urea Nitrogen 18 mg/dl (7-17); Calcium 9.5 mg/dl (8.4-10.2); Carbon Dioxide 30 mmol/L (22.0-30.0); Chloride 100 mmol/L (98-107); Creatinine Clearance Estimated 131 mL/min (50-200); Estimated Glomerular Filt Rate 77 ml/min (>60); GFR (African American) 93 ML/MIN (>60); Globulin 3.9 g/dL (1.3-3.2); Glucose 95 mg/dl (74-100); Lipase 314 U/L (23-300); Potassium 3.9 mmoL/L (3.5-5.1); Sodium 141 mmol/L (136-145); Total Protein,Serum 8.8 g/dl (6.3-8.2)
[2024-09-04 01:19] LABS: INR 0.87 (0.9-1.1); Prothrombin Time 9.9 seconds (10.1-12.5)
[2024-09-04] MEDS: ONDANSETRON 4MG/2ML VIAL 4 MG IV (01:19)
[2024-09-04] MEDS: ASPIRIN 81MG CHEWABLE TABLET 324 MG PO (01:19)
[2024-09-04 01:28] LABS: Lactic Acid 0.7 mmol/L (0.7-2.1)
[2024-09-04 01:29] LABS: NT Pro Brain Natriuretic Pep. < 20.0 pg/mL (0-125)
[2024-09-04 01:30] LABS: Troponin I < 0.01 ng/ml (0.00-0.034)
[2024-09-04] MEDS: 0.9 % SODIUM CHLORIDE 50 ML VIAL IV (01:39)
[2024-09-04] MEDS: IOPAMIDOL-370 (76%);100ML BOTTLE 80 ML IV (01:40)
[2024-09-04] MEDS: SODIUM CHLORIDE 0.9% 10ML SYR (RAD ONLY) 10 ML IV (01:40)
--- NOTE | 2024-09-04 01:45 | [facility].EDGENADL ---
Discharge Plan Disposition Patient Disposition: Home, Self-Care Condition: Fair Prescriptions Prescriptions: New ondansetron 4 mg tablet,disintegrating 4 mg PO Q6H PRN (Reason: nausea and vomiting) Qty: 10 0RF No Action ibuprofen 800 mg tablet 800 mg PO Q8H Qty: 90 0RF cholecalciferol (vitamin D3) 1,250 mcg (50,000 unit) capsule 1,250 mcg PO WEEKLY 84 Days Qty: 12 2RF gabapentin 100 mg capsule 100 mg PO TID PRN (Reason: nerve pain) 10 Days Qty: 30 0RF Rx Instructions: Take one pill every 8hrs as needed for severe nerve pain. sofosbuvir-velpatasvir 400-100 mg tablet 1 tab PO DAILY Qty: 28 2RF levothyroxine 125 mcg tablet See Rx Instructions .ROUTE .COMPLEX Qty: 30 0RF Dose Instruction: TAKE ONE TABLET BY MOUTH ONCE A DAY FOR THYROID Rx Instructions: TAKE ONE TABLET BY MOUTH ONCE A DAY FOR THYROID lidocaine 5 % adhesive patch,medicated 1 patch topical DAILY Qty: 30 0RF Rx Instructions: leave on most painful area for up to 12 hrs Referrals Follow up/Referrals: Tung Le APRN [Primary Care Provider] - See instructions Naresh Pearce II, MD [Staff Physician] - See instructions (pancreatitis, needs follow up, also hx of reflux sx, bowel problems ) Activity Restrictions/Add. Instructions Additional Instructions/Restrictions: You were evaluated in the ER and are believed to be appropriate for discharge at this time. Drink clear fluids for the first 24 hours, if your symptoms are improving, gradually advance your diet starting with bland foods. Add more foods as tolerated. Take the prescribed ondansetron (Zofran) if needed for nausea or vomiting. Take Tylenol if needed for pain, do not exceed the recommended dose on the bottle. You can also take ibuprofen but understand that this may irritate your stomach. Call Dr. Pearce office and make an appointment for outpatient GI follow-up. Also call your PCP and make an appointment for close follow-up. Avoid alcohol. Return to the ER with any new, worsening, or otherwise concerning symptoms. Clinical Impressions Clinical Impression: Pancreatitis Instructions Patient Instructions: DI for Acute Abdominal Pain Print Language Print Language: Syriac Discharge ED Provider: Adelina Romero Adult HPI General Chief complaint: Abdominal Pain Stated complaint: abd pain, diarrhea, lightheaded Time Seen by Provider: 09/04/24 00:58 Mode of Arrival: Ambulatory Source of Information: Patient Description of Symptoms (Recalled from ER Triage Doc. by RN): pt reports to the ED with complaints of abdominal pain the stays directly in the center and began a few hours ago. pt also reports gas and diarrhea. pt denies vomitting. pt also reports left arm pain History of Present Illness HPI narrative: 49-year-old female with a history of hypothyroid on levothyroxine presents to the ER with complaints of abdominal pain, nausea, diarrhea. Patient reports at 2:30 PM, approximately 10 hours prior to arrival she started noticing left arm pain and feeling generally unwell. She states she was also sweaty but that she often is very sweaty. She did not think much of her symptoms until shortly prior to arrival she developed worsening abdominal pain, nausea, and had a few episodes of nonbloody, nonmelanotic diarrhea. She reports her stool was green. She denies having known fevers, no chest pain or difficulty breathing. She does states she has some discomfort between her shoulder blades. She indicates to the epigastric area when describing her abdominal pain. She denies any dysuria or hematuria. No other complaints or concerns. Related Data Previous Rx's ?Medication ?Instructions ?Recorded ibuprofen 800 mg tablet 800 mg PO Q8H #90 tabs 04/26/24 cholecalciferol (vitamin D3) 1,250 1,250 mcg PO WEEKLY 12 weeks #12 05/12/24 mcg (50,000 unit) capsule caps gabapentin 100 mg capsule 100 mg PO TID PRN nerve pain 10 05/16/24 days #30 caps lidocaine 5 % topical patch 1 patch topical DAILY #30 ea 05/30/24 sofosbuvir 400 mg-velpatasvir 100 1 tab PO DAILY #28 tabs 06/12/24 mg tablet levothyroxine 125 mcg tablet See Rx Instructions .Route 06/20/24 .COMPLEX #30 tabs ondansetron 4 mg disintegrating 4 mg PO Q6H PRN nausea and 09/04/24 tablet vomiting #10 tabs Allergies Allergy/AdvReac Type Severity Reaction Status Date / Time iodine Allergy Intermediate I-RASH Verified 06/08/24 15:45 shellfish derived (From Allergy Mild UNK Verified 01/08/25 15:45 SHELLFISH (FOOD/DRUG)) liliac Allergy Intermediate rash Uncoded 03/03/24 11:19 [facility] Disclaimer: The information contained in this section may have been updated after the patient was seen, as this information can be updated by other users. Medical History Nephrolithiasis Acute appendicitis Dental caries Deviated nasal septum Degenerative disc disease Spinal stenosis in cervical region Hypothyroid Currently on Synthroid 0.125 mg Hematuria Back pain Sinusitis Atypical chest pain UTI (urinary tract infection) Strain of fascia of pelvis Cervical strain, acute Acute bronchitis Surgical History History of thyroidectomy History of left breast biopsy History of appendectomy H/O total hysterectomy Social History Smoking Status: Current every day smoker tobacco type: cigarettes packs per day: 1 second hand exposure: Yes alcohol intake: never substance use type: former substance user current occupational status: other Travel in the last 8 weeks: None Have you lived/traveled outside [place] in past 30 days?: No Contact w/someone who lives/traveled outside US past 30 days?: No Exposure to someone with infectious disease in past 14 days?: No Do you have a fever (greater than 100.4 F or 38 C)?: No Have you tested positive for COVID-19: No Exposed to someone with COVID-19 in past 14 days?: No Do you have a sore throat?: No Do you have a cough?: No Do you have any weakness?: No Do you have any diarrhea?: Yes Are you experiencing any unusual bleeding?: No Do you have any muscle aches/pain?: No Do you have any abdominal pain?: Yes Are you experiencing loss of taste or smell?: No Other Medical History Have you received the Flu Vaccine for this season: No Have you received the Pneumonia Vaccine: No ROS Obtained: Yes Systems reviewed as appropriate & no additional complaints except as documented per HPI Physical Exam General General appearance: alert and in no apparent distress Head Head exam: atraumatic and normocephalic Eye Eye exam: Present PERRL and EOMI ENT ENT exam: Present mucous membranes moist Neck Neck exam: Present normal inspection and full ROM Chest Chest inspection: Present symmetric chest wall rise; Absent tenderness Respiratory Respiratory exam: Present normal lung sounds bilaterally; Absent respiratory distress, wheezes or stridor Cardiovascular Cardiovascular exam: Present regular rate and normal rhythm Abdominal Exam Abdominal exam: Present soft and tenderness (Epigastric); Absent distention, guarding, rebound or rigidity Extremities Exam Extremities exam: Present full ROM; Absent edema Neurological Exam Neurological exam: Present alert and oriented X3; Absent motor sensory deficit Psychiatric Psychiatric exam: Present normal affect and normal mood Skin Skin exam: Present warm and dry Medical Decision Making Medical Records Medical records reviewed: Yes I reviewed the patient's medical records. Screening: Per USPSTF and CDC recommendations, given the prevalence of disease in our region, it is our hospital?s policy to screen for HIV and viral Hepatitis for all patients aged 18 and over and those with ongoing risk factors. MR Comment: CT abdomen pelvis from May 2024 demonstrated patient had nonobstructing renal stones, no acute GI abnormality. Wilian Inquiry Pt receiving controlled substance: No Vital Signs: 09/04/24 01:03 09/04/24 02:00 09/04/24 02:30 Temperature 97.6 F Temperature Source Oral Pulse Rate 69 72 Pulse Rate [Right] 74 Respiratory Rate 20 17 14 Blood Pressure 168/88 H 150/89 H Blood Pressure [Right Arm] 162/80 H Blood Pressure Mean [Right Arm] 107 02 Sat by Pulse Oximetry 100 99 99 Oxygen Delivery Method Room Air 09/04/24 03:00 Temperature Temperature Source Pulse Rate 63 Pulse Rate [Right] Respiratory Rate 14 Blood Pressure 116/59 L Blood Pressure [Right Arm] Blood Pressure Mean [Right Arm] 02 Sat by Pulse Oximetry 99 Oxygen Delivery Method Lab Data Lab Results 09/04/24 01:00: WBC 8.8, RBC 4.99, Hgb 14.8, Hct 44.9, MCV 90.0, MCH 29.7, MCHC 33.0, RDW 12.4, Plt Count 337, MPV 10.2, Neut % (Auto) 62.4, Lymph % (Auto) 28.2, [place] % (Auto) 7.6, Eos % (Auto) 1.0, Baso % (Auto) 0.5, Neut # (Auto) 5.5, Lymph # (Auto) 2.5, [place] # (Auto) 0.7, Eos # (Auto) 0.1, Baso # (Auto) 0.0, PT 9.9 L, INR 0.87 L, Sodium 141, Potassium 3.9, Chloride 100, Carbon Dioxide 30, Anion Gap 14.9, BUN 18 H, Creatinine 0.80, Estimated Creat Clear 131, Estimated GFR 77, Est GFR ( Amer) 93, Glucose 95, Lactate 0.7, Calcium 9.5, Total Bilirubin 0.5, AST 57 H, ALT 71, Alkaline Phosphatase 143 H, Troponin I < 0.01, NT-Pro-B Natriuret Pep < 20.0, Total Protein 8.8 H D, Albumin 4.9, Globulin 3.9 H, Albumin/Globulin Ratio 1.3, Lipase 314 H 09/04/24 02:58: Troponin I < 0.01 09/04/24 01:00 09/04/24 01:00 Orders (Tests/Meds): ED MEDICATIONS Generic Name Dose Route Start Last Admin Trade Name Freq PRN Reason Stop Dose Admin Nitroglycerin 0.4 mg 09/04/24 01:03 Nitroglycerin 0.4mg Sl Tablet SL 09/05/24 01:03 [id number] PRN Chest Pain Discontinued Medications Generic Name Dose Route Start Last Admin Trade Name Freq PRN Reason Stop Dose Admin Aspirin 324 mg 09/04/24 01:03 09/04/24 01:19 Aspirin 81mg Chewable Tablet PO 09/04/24 01:04 324 mg ONCE ONE Administration Hydromorphone HCl 0.5 mg 09/04/24 02:10 09/04/24 02:26 Hydromorphone 2mg/Ml Syringe IV 09/04/24 02:11 0.5 mg ONCE ONE Administration Lactated Ringer's 1,000 mls @ 999 mls/hr 09/04/24 02:21 09/04/24 02:26 Lactated Ringer's 1000 Ml Bag IV 09/04/24 03:21 999 mls/hr .Q1H1M ONE Administration Iopamidol 80 ml 09/04/24 01:37 09/04/24 01:40 Iopamidol-370 (76%);100ml Bottle IV 09/04/24 01:38 80 ml ONCE ONE Administration Ondansetron HCl 4 mg 09/04/24 01:03 09/04/24 01:19 Ondansetron 4mg/2ml Vial IV 09/04/24 01:04 4 mg ONCE ONE Administration Sodium Chloride 50 ml 09/04/24 01:37 09/04/24 01:39 0.9 % Sodium Chloride 50 Ml Vial IV 09/04/24 01:38 50 ml ONCE ONE Administration Sodium Chloride 10 ml 09/04/24 01:37 09/04/24 01:40 Sodium Chloride 0.9% 10ml Syr (Rad Only) IV 09/04/24 01:38 10 ml ONCE ONE Administration ORDERS Category Date Time Status CT abdomen pelvis w con Stat Cat Scan 09/04/24 01:[address] angio chest PE protocol Stat Cat Scan 09/04/24 01:03 Completed XR chest portable Stat Exams 09/04/24 01:03 Completed Complete Blood Count Auto Diff Stat Lab 09/04/24 01:00 Completed Comprehensive Metabolic Panel Stat Lab 09/04/24 01:00 Completed Diarrhea 6-11 Panel, Cdiff PCR Stat Lab 09/04/24 01:03 Ordered Lactic Acid Stat Lab 09/04/24 01:00 Completed Lipase Stat Lab 09/04/24 01:00 Completed NT Pro Brain Natriuretic Pep. Stat Lab 09/04/24 01:00 Completed Prothrombin Time INR Stat Lab 09/04/24 01:00 Completed Troponin I Q3H Lab 09/04/24 02:58 Completed Troponin I Q3H Lab 09/04/24 07:15 Ordered Troponin I Stat Lab 09/04/24 01:00 Completed Medical Decision Narrative: In summary, this 49-year-old female with comorbidities described in the HPI presents to the emergency department today with abdominal pain, nausea, diarrhea, left arm pain. On initial evaluation patient is hemodynamically stable, afebrile, exam notable for tenderness without rebound or guarding in the epigastric region, no other acute abnormalities on exam. Differential diagnosis includes but is not limited to I considered ACS and PE, also considered pancreatitis, viral syndrome, infectious diarrhea, among others. Based on these concerns, I ordered cardiac workup, CTA PE, CT abdomen pelvis, serum labs. ECG personally interpreted demonstrates sinus rhythm, rate 64, normal axis, normal [place] and QTc, patient has Q waves in the inferior leads however these appear stable from previous ECG performed in 2019. No STEMI. Patient received aspirin and Zofran initially for treatment. Labs personally reviewed demonstrate no leukocytosis or anemia, CBC is normal, PT/INR nonactionable, CMP with mild prerenal azotemia, patient is receiving IV fluids. Initial troponin undetectably low less than 0.01 significantly reassuring since patient's symptoms started nearly 10 hours ago and she has reassuring ECG, BNP less than 20, lipase elevated at 314 concerning for pancreatitis. XR personally interpreted demonstrates no acute intrathoracic abnormality, see radiology for final interpretation. CT imaging personally interpreted demonstrate no large PE, no pulmonary infiltrate, patient has pneumatocele which has previously been identified. I also personally interpreted CT abdomen pelvis and do not appreciate any acute intra-abdominal pathology. See radiology reads for full interpretations. On reassessment patient is relieved by the cardiac workup and understands the finding of pancreatitis. She reports that last night she had a single drink of an alcoholic cocktail. She states that recently when she has had to the occasional alcoholic beverage she has noticed that she gets similar symptoms to what she had tonight. She believes that alcohol is likely causing her pancreatitis flares. I agree with her suspicion. Even if she is only drinking small amounts of alcohol, if she is sensitive to it it could be causing her pancreatitis. Thankfully patient has no dangerous findings with her pancreatitis such as evidence of choledocholithiasis, gallstone pancreatitis, transaminitis, necrotizing pancreatitis, pancreatic mass or cyst, or elevated WBC. I offered the patient admission to the hospital for continued symptomatic management, she would prefer to have a single dose of pain medications here and then be discharged. She understands I will not be discharging her with any pain medications. I did prescribe ondansetron for outpatient nausea control. She is not having vomiting and is currently tolerating clear liquids by mouth. She is receiving IV fluids as well. I had a long discussion with her about pancreatitis, the symptoms that it can cause, potential stimuli for it, as well as outpatient management, clear liquids followed by bland diet, and outpatient follow-up recommendations including referral to GI. On reassessment patient is resting comfortably and would like to be discharged which I believe is reasonable at this time since she is tolerating oral intake and pain is controlled. Patient was given instructions on symptomatic management, follow up instructions including referral to GI, and return precautions for the emergency department. Patient indicated understanding and was discharged in stable condition. Critical Care Critical Care Time Critical Care Time: No
[2024-09-04 02:00] VITALS: BP 168/88; PULSE 69; RESP 17; O2SAT 99
[2024-09-04] MEDS: LACTATED RINGERS 1000ML 1,000 ML 999 ML IV (02:26)
[2024-09-04] MEDS: HYDROMORPHONE 2MG/ML SYRINGE 0.5 MG IV (02:26)
[2024-09-04 02:30] VITALS: BP 150/89; PULSE 72; RESP 14; O2SAT 99
[2024-09-04 03:00] VITALS: BP 116/59; PULSE 63; RESP 14; O2SAT 99
[2024-09-04 03:25] LABS: Troponin I < 0.01 ng/ml (0.00-0.034)
[2024-09-04 03:40] VITALS: BP 113/62; PULSE 57; RESP 16; TEMP 36.4; O2SAT 100
== END 2024-09-04 04:40 | disposition home or self-care (01) ==
PROVIDERS: Emergency Provider Emergency Medicine; PCP Nurse Practitioner Family
DX: K85.90 Acute pancreatitis without necrosis or infection, unspecified (principal); R10.9 Unspecified abdominal pain; R11.0 Nausea; R19.7 Diarrhea, unspecified; M79.602 Pain in left arm; R61 Generalized hyperhidrosis; F17.210 Nicotine dependence, cigarettes, uncomplicated
CPT/HCPCS: 71045; 71275; 74177; 80053; 83605; 83690; 83880; 84484; 85025; 85610; 93005; 96361; 96374; 96375; 99285; J1171; J2405; J7120; Q9967

== ENCOUNTER 2024-09-05 15:06 | Outpatient (CLI) | payer SELFPAY ==
[2024-09-05 17:52] LABS: Free T4 (Free Thyroxine) 0.88 ng/dl (0.78-2.19)
[2024-09-05 18:12] LABS: Thyroid Stimulating Hormone 1.81 uIU/mL (0.465-4.68)
== END 2024-09-05 23:59 | disposition home or self-care (01) ==
LOC: LAB 15:11
PROVIDERS: PCP Nurse Practitioner Family; Visit Provider Nurse Practitioner
DX: E03.9 Hypothyroidism, unspecified (principal)
CPT/HCPCS: 36415; 84439; 84443

== ENCOUNTER 2025-04-10 17:29 | Emergency (ER) | payer OTHER, SELFPAY ==
[2025-04-10 17:40] VITALS: BP 187/104; PULSE 87; RESP 24; TEMP 36.6; O2SAT 100; BMI 33.3
--- OUTSIDE RECORDS SUMMARY | 2025-04-10 17:52 | XMS_ITS | Clinical Summary ---
Author Organization [facility] ([place], [place], [place], [place], [place]) Address [address] [place] [address] Care Team Providers Care Quirk Sander Name Role Phone Unavailable Primary Care Provider Unavailabl e Social History Tobacco Use Types Packs/Day Years Used Date Smoking Tobacco: Never Assessed Comments Unknown Sex and Gender Information Value Date Recorded Sex Assigned at Female 11/26/2021 9:02 PM CDT Legal Sex Female 9:02 PM CDT Gender Identity Female 11/26/2021 9:02 PM CDT Sexual Orientation Not on file Plan of Treatment Not on file
--- OUTSIDE RECORDS SUMMARY | 2025-04-10 17:52 | XMS_ITS | Referral Summary ---
Author Organization [facility] ([place], [place], [place], [place], [place]) Address [address] [place] [address] Care Team Providers Care Jacket Changer Name Role Phone Unavailable Primary Care Provider [...]
[2025-04-10 18:06] VITALS: BP 00/00; PULSE 0; RESP 0; TEMP -17.7; TEMP 0; O2SAT 0
== END 2025-04-10 18:07 | disposition left against medical advice (07) ==
LOC: ER 17:50
PROVIDERS: Emergency Provider Student in an Organized Health Care Education/Training Program; PCP Nurse Practitioner Family
DX: Z53.21 Procedure and treatment not carried out due to patient leaving prior to being seen by health care provider (principal)
CPT/HCPCS: 99211; 99282

== ENCOUNTER 2025-04-10 18:37 | Emergency (ER) | payer OTHER, SELFPAY ==
[2025-04-10 18:53] VITALS: BP 140/90; PULSE 90; RESP 22; TEMP 37.1; O2SAT 96; BMI 33.3
--- NOTE | 2025-04-10 18:56 | XR_ITS ---
PROCEDURE INFORMATION: Exam: XR Left Hand Exam date and time: 04/10/2025 7:35 PM Age: 49 years old Clinical indication: Injury or trauma; Other: Staple in thumb; Other: Pain TECHNIQUE: Imaging protocol: Radiologic exam of the left hand. Views: 3 or more views. COMPARISON: No relevant prior studies available. FINDINGS: Bones/joints: Radiopaque linear density extends through the distal phalanx of the thumb. Soft tissues: Normal. IMPRESSION: Radiopaque linear density extends through the distal phalanx of the thumb.
--- OUTSIDE RECORDS SUMMARY | 2025-04-10 19:06 | XMS_ITS | Referral Summary ---
Author Organization [facility] ([place], [place], [place], [place], [place]) Address [address] [place] [address] Care Team Providers Care Network Services Project Manager Name Role Phone Unavailable Primary Care Provider [...]
--- OUTSIDE RECORDS SUMMARY | 2025-04-10 19:06 | XMS_ITS | Clinical Summary ---
Author Organization [facility] ([place], [place], [place], [place], [place]) Address [address] [place] [address] Care Team Providers Care Cut Plug Packer Name Role Phone Unavailable Primary Care Provider [...]
--- NOTE | 2025-04-10 19:31 | HMH.EDGENADL ---
Discharge Plan Disposition Patient Disposition: Home, Self-Care Prescriptions Prescriptions: New doxycycline monohydrate 100 mg capsule 100 mg PO BID 7 Days Qty: 14 0RF No Action fluticasone propionate [Flonase Allergy Relief] 50 mcg/actuation spray,suspension 1 spray intranasal BID Qty: 16 3RF Rx Instructions: administer into each nostril levothyroxine [Synthroid] 100 mcg tablet 100 mcg PO DAILY Qty: 30 2RF Referrals Follow up/Referrals: Tung Le APRN [Primary Care Provider, Family Practice] - See instructions Activity Restrictions/Add. Instructions Additional Instructions/Restrictions: You been seen evaluated. Please take doxycycline to prevent urine to the ED or follow-up with your PCP with concerns of wound infection Clinical Impressions Clinical Impression: Metal foreign body in finger Stand Alone Forms Stand Alone Forms: Work/School Release Instructions Patient Instructions: DI for Splinter Removal Print Language Print Language: [place] Discharge ED Provider: Ariana Cruz General Adult HPI General Chief complaint: Wound/Laceration Stated complaint: Returned from earlier for Staple in Thumb Time Seen by Provider: 04/10/25 19:17 Mode of Arrival: Ambulatory Source of Information: Patient Description of Symptoms (Recalled from ER Triage Doc. by RN): Pt was using staple gun about an hour ago when she shot a staple into her thumb. Staple still in thumb History of Present Illness HPI narrative: 49-year-old female who presents emergency department with a stable embedded in her left thumb. This occurred immediately prior to arrival. She was performing alterations to windows at home. Cannot remember her last tetanus shot. Denies other injuries. Related Data Previous Rx's ?Medication ?Instructions ?Recorded fluticasone propionate 50 1 spray intranasal BID #16 grams 12/29/24 mcg/actuation nasal spray,suspension (Flonase Allergy Relief) levothyroxine 100 mcg tablet 100 mcg PO DAILY #30 tabs 03/30/25 (Synthroid) doxycycline monohydrate 100 mg 100 mg PO BID 7 days #14 caps 04/10/25 capsule Allergies Allergy/AdvReac Type Severity Reaction Status Date / Time iodine Allergy Intermediate I-RASH Verified 03/15/25 12:23 shellfish derived (From Allergy Mild UNK Verified 03/15/25 12:23 SHELLFISH (FOOD/DRUG)) liliac Allergy Intermediate rash Uncoded 03/15/25 12:23 PFSH PFS Disclaimer: The information contained in this section may have been updated after the patient was seen, as this information can be updated by other users. Medical History Nephrolithiasis Acute appendicitis Dental caries Deviated nasal septum Degenerative disc disease Spinal stenosis in cervical region Hypothyroid Hematuria Back pain Sinusitis Atypical chest pain UTI (urinary tract infection) Strain of fascia of pelvis Cervical strain, acute Acute bronchitis Surgical History History of partial thyroidectomy right lobe History of thyroidectomy History of left breast biopsy History of appendectomy H/O total hysterectomy Social History (Updated 03/15/25 @ 12:26 by Marleny Patel MA) Smoking Status: Current every day smoker tobacco type: e-cigarettes second hand exposure: Yes alcohol intake: never substance use type: former substance user current occupational status: other Travel in the last 8 weeks?: None Have you lived/traveled outside [place] in past 30 days?: No Contact w/someone who lives/traveled outside [place] past 30 days?: No Exposure to someone with infectious disease in past 14 days?: No Do you have a fever (greater than 100.4 F or 38 C)?: No Have you tested positive for COVID-19?: No Exposed to someone with COVID-19 in past 14 days?: No Do you have a sore throat?: No Do you have a cough?: No Do you have any weakness?: No Do you have any diarrhea?: No Are you experiencing any unusual bleeding?: No Do you have any muscle aches/pain?: No Do you have any abdominal pain?: No Are you experiencing loss of taste or smell?: No Other Medical History Have you received the Flu Vaccine for this season: No Have you received the Pneumonia Vaccine: No ROS Obtained: Yes All systems reviewed & no additional complaints except as documented Physical Exam General General appearance: alert and in no apparent distress Head Head exam: atraumatic Eye Eye exam: Present normal appearance, PERRL and EOMI ENT ENT exam: Present mucous membranes moist Neck Neck exam: Present normal inspection and full ROM; Absent tenderness Chest Chest inspection: Present symmetric chest wall rise; Absent tenderness Respiratory Respiratory exam: Absent respiratory distress, wheezes or accessory muscle use Cardiovascular Cardiovascular exam: Present regular rate and normal rhythm Abdominal Exam Abdominal exam: Present soft; Absent tenderness or guarding Extremities Exam Extremities exam: Present full ROM; Absent tenderness Neurological Exam Neurological exam: Present alert and oriented X3 Psychiatric Psychiatric exam: Present normal affect Skin Skin exam: Present warm, dry and other (There is a approximately 3 cm metal foreign body embedded in the palmar aspect of the distal pad of the left thumb. No active bleeding.) Medical Decision Making Medical Records Screening: Per USPSTF and CDC recommendations, given the prevalence of disease in our region, it is our hospital?s policy to screen for HIV and viral Hepatitis for all patients aged 18 and over and those with ongoing risk factors. Wilian Inquiry Pt receiving controlled substance: No Wilian was queried for this patient: No Vital Signs: 04/10/25 18:53 04/10/25 21:50 Temperature 98.7 F 97.9 F Temperature Source Temporal Artery Scan Pulse Rate 72 Pulse Rate [Right] 90 Respiratory Rate 22 16 Blood Pressure 160/91 H Blood Pressure [Right Arm] 140/90 Blood Pressure Mean [Right Arm] 106 Blood Pressure Source [Right Arm] Automatic Cuff Blood Pressure Position [Right Arm] Sitting 02 Sat by Pulse Oximetry 96 Oxygen Delivery Method Room Air Room Air Orders (Tests/Meds): ED MEDICATIONS Discontinued Medications Generic Name Dose Route Start Last Admin Trade Name Freq PRN Reason Stop Dose Admin Ketamine HCl 25 mg 04/10/25 21:09 04/10/25 21:14 Ketamine 50mg/1ml Syringe 0.3 mg/kg (25 mg) 04/10/25 21:10 25 mg IV Administration ONCE ONE Midazolam HCl 2 mg 04/10/25 20:51 04/10/25 20:51 Midazolam 2mg/2ml Vial IV 04/10/25 20:52 2 mg ONCE ONE Administration Oxycodone HCl 5 mg 04/10/25 19:30 04/10/25 20:13 Oxycodone 5mg Immediate Release Tablet PO 04/10/25 19:31 5 mg ONCE ONE Administration Tetanus/Reduced Diphtheria/Acell Pertussis 0.5 ml 04/10/25 19:29 04/10/25 20:14 Tet/Diphth/Pert-Adult 0.5ml Syringe IM 04/10/25 19:30 0.5 ml .ONCE ONE Administration ORDERS Category Date Time Status Hand XR left minimum 3 views [XR hand LT min 3V] Stat Exams 04/10/25 21:04 Completed XR hand LT min 3V Stat Exams 04/10/25 18:56 Completed Medical Decision Narrative: In summary, this is a 49 y/o f presenting the emergency department for staple in her L thumb. Differential diagnosis includes but is not limited to: metallic FB, fracture On my initial assessment, the patient is hemodynamically stable in no acute distress. Physical exam is notable for obvious metallic FB in the L thumb. XR shows this object projecting through the distal phalanx of the L thumb. Pain dose ketamine and low dose Versed used for anxiolysis and FB removed successfully with hemostats. Repeat XR shows no retained FB. Patient was ultimately discharged home in the care of her significant other with wound care instructions and prophylactic Rx for doxycycline considering direct bone penetration. Procedures Foreign Body Removal Time Out Performed: Yes Site: left (Thumb) Description of foreign body: other (Metallic foreign body, staple) Sedation/Analgesia: midazolam (2 mg of midazolam was given for anxiolysis, followed by 25 mg of ketamine) Technique: manual removal (Foreign body was removed easily using hemostats. Direct pressure applied to the area afterwards) Complications: none Post-procedure exam: awake, alert Neurovascular: normal distal pulse, normal capillary fill, distal light touch sensation intact and distal motor function normal Critical Care Critical Care Time Critical Care Time: No
[2025-04-10] MEDS: OXYCODONE 5MG IMMEDIATE RELEASE TABLET 5 MG PO (20:13)
[2025-04-10] MEDS: TET/DIPHTH/PERT-ADULT 0.5ML SYRINGE 0.5 ML IM (20:14)
[2025-04-10] MEDS: MIDAZOLAM 2MG/2ML VIAL 2 MG IV (20:51)
--- NOTE | 2025-04-10 21:04 | XR_ITS ---
PROCEDURE INFORMATION: Exam: XR Left Hand Exam date and time: 04/10/2025 9:20 PM Age: 49 years old Clinical indication: Pain; Hand; Left; Additional info: Post foreign body removal TECHNIQUE: Imaging protocol: Radiologic exam of the left hand. Views: 3 or more views. COMPARISON: CR XR HAND LT MIN 3V 04/10/2025 7:35 PM FINDINGS: Bones/joints: No acute fracture or dislocation. No focal bony lesions Soft tissues: Interval removal of a linear foreign body that was seen in the tip of the thumb. No residual foreign body. IMPRESSION: Interval removal of a linear foreign body that was seen in the tip of the thumb. No residual foreign body.
[2025-04-10] MEDS: KETAMINE 50MG/1ML SYRINGE 25 MG IV (21:14)
--- NOTE | 2025-04-10 21:15 | PC.NURSE ---
Ketamine administered by GABBY Boothe, @ 20:59
--- NOTE | 2025-04-10 21:20 | PC.NURSE ---
Dr. Dasilva thought we may need sedation to remove foreign body from thumb. Pt was moved to Rm 3, an IV was inserted, pt was placed on cardiac monitoring. Pt rec'd Versed for anxiety and approx 20 minutes later we entered the room to remove foreign body. Pt was administered 25 mg of Ketamine (pain dose) and was able to tolerate removal without sedation. Pt's is bedside at this time. VSS
[2025-04-10 21:50] VITALS: BP 160/91; PULSE 72; RESP 16; TEMP 36.6; O2SAT 98
== END 2025-04-10 22:05 | disposition home or self-care (01) ==
PROVIDERS: Emergency Provider Student in an Organized Health Care Education/Training Program; PCP Nurse Practitioner Family
DX: S60.352A Superficial foreign body of left thumb, initial encounter (principal); W45.8XXA Other foreign body or object entering through skin, initial encounter
CPT/HCPCS: 10120; 73130; 90471; 90715; 96374; 96375; 99284; J2250